=== PATIENT | female | born 1950 | race Caucasian/White ===

== ENCOUNTER 2024-01-20 02:07 | Inpatient (IN) | payer MEDICARE, SELFPAY ==
[2024-01-19] VITALS (7 sets, daily range): BP systolic 146–184; BP diastolic 67–93; PULSE 66–75; BMI 43.1
[2024-01-19 22:09] LABS: % Basophils 0.7 % (0-2); % Immature Granulocytes 0.2 % (0-0.5); % Lymphocytes 19.2 % (20.5-51.1); % Monocytes 6.4 % (1.7-9.3); % Neutrophils 70.5 % (42.2-75.2); Absolute Basophils 0.1 10^3/uL (0-0.2); Absolute Eosinophils 0.3 10^3/uL (0-0.7); Absolute Lymphocytes 2.1 10^3/uL (1.2-3.4); Absolute Monocytes 0.7 10^3/uL (0.1-0.6); Absolute Neutrophils 7.6 10^3/uL (1.4-6.5); Hematocrit 37.2 % (37.0-47.0); Hemoglobin 12.6 g/dL (12.0-16.0); Mean Corp Hgb Conc. 33.9 g/dL (33.0-37.0); Mean Corpuscular Hgb 27.9 pg (27.0-31.0); Mean Corpuscular Volume 82.5 fL (81.0-99.0); Mean Platelet Volume 9.3 fL (7.4-10.4); Nucleated Red Blood Cells % 0 %; Platelet Count 296 10^3/uL (130-400); Red Blood Cell Count 4.51 10^6/uL (4.20-5.40); Red Cell Dist. Width 13.6 % (11.5-14.5); White Blood Cell Count 10.7 10^3/uL (4.8-10.8)
[2024-01-19 22:27] LABS: ALT (SGPT) 17 U/L (0-35); AST (SGOT) 29 U/L (14-36); Albumin 4.5 g/dl (3.5-5.0); Alkaline Phosphatase 80 U/L (38-126); Blood Urea Nitrogen 18 mg/dl (7-17); Calcium 9.9 mg/dl (8.4-10.2); Carbon Dioxide 28 mmol/L (22-30); Chloride 104 mmol/L (98-107); Estimated Creatinine Clearance 84 ml/min; Glucose 126 mg/dl (70-99); Potassium 4.4 mmol/L (3.5-5.1); Sodium 139 mmol/L (135-145); Total Bilirubin 0.6 mg/dl (0.2-1.3); Total Protein 6.9 g/dl (6.3-8.2); eGFR > 60.00
--- NOTE | 2024-01-19 23:09 | ED.GENMED ---
History of Present Illness
<Elza Floyd MD, Resident - Last Filed: 01/19/24 23:42>
General
Chief Complaint: Dizziness
Time Seen by Provider: 01/19/24 22:52
History of Present Illness
History of Present Illness:
73 year old female with PMH HTN, HLD, CABG, PE, thyroid nodules, hypothyroidism, presented to the ED with dizziness which started this afternoon at 2 pm. Patient c/o of feeling lightheaded while getting up from chair. She had a hard time putting in
her slippers today. She denies room spinning. She reports of blurred vision due to history of cataract. Patient sees Dr Castro for history of heart disease. She is on Eliquis twice a day for PE. Patient c/o left anterior neck pain which
radiates up left jaw intermittently. She also reports of left ear fullness. She has history of vertigo for which she had taken meclizine in the past. Denies N, V. She reports of mild headache.
Past History
<Elza Floyd MD, Resident - Last Filed: 01/19/24 23:42>
Past History
ED Past Medical History: CAD, GERD, HTN, Hypercholesterolemia, Hypothyroidism and Other (DVT on Eliquis)
ED Past Surgical History: Cardiac and Orthopedic
Social History
Tobacco: Non-smoker
Alcohol: None
Personal:
Living: with family
Employment: Retired
Family History
Family History: Other
Phy Exam
<Elza Floyd MD, Resident - Last Filed: 01/19/24 23:42>
General Physical Exam
General Presentation: well appearing and no apparent distress
ENT Exam
ENT Exam: TM's normal, neck supple and other (tenderness around left sternocleidomastoid muscle )
Additional ENT: mallampati score 3
Cardiovascular Exam
Cardiovascular Exam: regular rate/rhythm
Pulmonary Exam
Pulmonary Exam: lungs clear
Course
<Elza Floyd MD, Resident - Last Filed: 01/19/24 23:42>
Orders/Labs/Results
Orders:
Orders
01/19/24 21:49
Complete Blood Count/With Diff Urgent
Comprehensive Metabolic Panel Urgent
01/19/24 23:19
Electrocardiogram (*1) Urgent
Reason for Study: CAD
Other Reason for Exam: neck pain
EKG- Treatment ONCE
Orthostatic VS- Treatment ONCE
01/19/24 23:34
Troponin I Urgent
Acetaminophen 1000MG/100Ml [Ofirmev] 1,000 mg in 100 ml IV ONCE
Acetaminophen IV Indication:: ED Narcotic Naive Pt-ONCE
Meclizine [Antivert] 25 mg PO NOW STA
01/20/24 00:00
CT Head W/o Iv Contrast Urgent
Reason For Exam: acute dizziness w N/V
Abnormal Lab Results
01/19/24 01/20/24
21:49 00:25
Absolute Neuts (auto) 7.6 H 10^3/uL
(1.4-6.5)
Absolute Monos (auto) 0.7 H 10^3/uL
(0.1-0.6)
Lymphocytes % 19.2 L %
(20.5-51.1)
BUN 18 H mg/dl
(7-17)
Glucose 126 H mg/dl
(70-99)
Troponin I 0.036 H* ng/ml
01/19/24 21:49
01/19/24 21:49
Vital Signs
Initial and Last Documented VS:
Initial Vital Signs
Temp Pulse Resp BP Pulse Ox
98.1 F 86 18 184/93 98
01/19/24 20:33 01/19/24 20:33 01/19/24 20:33 01/19/24 20:33 01/19/24 20:33
Last Documented Vital Signs
Temp Pulse Resp BP Pulse Ox
98.1 F 86 18 177/85 97
01/19/24 20:33 01/19/24 20:33 01/19/24 20:33 01/19/24 21:50 01/19/24 22:15
<Daksha Juarez, DO - Last Filed: 01/20/24 01:30>
Orders/Labs/Results
Orders:
Orders
01/19/24 21:49
Complete Blood Count/With Diff Urgent
Comprehensive Metabolic Panel Urgent
01/19/24 23:19
Electrocardiogram (*1) Urgent
Reason for Study: CAD
Other Reason for Exam: neck pain
EKG- Treatment ONCE
Orthostatic VS- Treatment ONCE
01/19/24 23:34
Troponin I Urgent
Acetaminophen 1000MG/100Ml [Ofirmev] 1,000 mg in 100 ml IV ONCE
Acetaminophen IV Indication:: ED Narcotic Naive Pt-ONCE
Meclizine [Antivert] 25 mg PO NOW STA
01/20/24 00:00
CT Head W/o Iv Contrast Urgent
Reason For Exam: acute dizziness w N/V
Abnormal Lab Results
01/19/24 01/20/24
21:49 00:25
Absolute Neuts (auto) 7.6 H 10^3/uL
(1.4-6.5)
Absolute Monos (auto) 0.7 H 10^3/uL
(0.1-0.6)
Lymphocytes % 19.2 L %
(20.5-51.1)
BUN 18 H mg/dl
(7-17)
Glucose 126 H mg/dl
(70-99)
Troponin I 0.036 H* ng/ml
01/19/24 21:49
01/19/24 21:49
Vital Signs
Initial and Last Documented VS:
Initial Vital Signs
Temp Pulse Resp BP Pulse Ox
98.1 F 86 18 184/93 98
01/19/24 20:33 01/19/24 20:33 01/19/24 20:33 01/19/24 20:33 01/19/24 20:33
Last Documented Vital Signs
Temp Pulse Resp BP Pulse Ox
98.1 F 86 18 177/85 97
01/19/24 20:33 01/19/24 20:33 01/19/24 20:33 01/19/24 21:50 01/19/24 22:15
<Daksha Juarez DO - Last Filed: 01/20/24 01:30>
*Radiology
Radiology exam reviewed: radiology read reviewed (CT of the head is unremarkable.)
*Pulse Oximetry
Patient hypoxic: no
*EKG
Interpreted by ED Provider?: Yes
Interpretation: abnormal
Comparison EKG: no changes (Unchanged from previous 2019 as well as 2021)
Rate: normal
Rhythm: sinus
[place]: normal axis
Interval: long QT
QRS Pattern: normal QRS
Ischemia: T-wave inversion (Flipped T waves anteriorly, similar and unchanged from previous EKGs.)
*Lift Operator Interpretation
Rate: normal
Interpretation: normal
Rhythm: sinus
*Critical Care Note
Total Time (30-74mins, 75-104mins- exclusive of procedures): Not Applicable
<Elza Floyd MD, Resident - Last Filed: 01/19/24 23:42>
Update Note
Update Note:
D/D- peripheral vertigo vs central vertigo, Angina (due to jaw pain )
Ordered CT scan of head to r/o hemorrhage. Dizziness can be caused by TIA.
Ordered EKG, troponin I to r/o NH.
IV tylenol and meclizine
ED Attending Note
<Elza Floyd MD, Resident - Last Filed: 01/19/24 23:42>
-
Portions of this chart may have been created with voice recognition software.� Occasional wrong word or��sound alike� substitutions may have occurred due to the inherent limitations of voice recognition software.
<Daksha Juarez DO - Last Filed: 01/20/24 01:30>
ED Attending Note
Patient seen and examined by attending physician: Yes
I performed a history and physical exam of patient and discussed management with resident, I reviewed resident's note and agree with documented findings and plan of care.: Yes
ED Attending Note:
73-year-old woman with history of hypertension, hyperlipidemia, CAD/CABG, hypothyroidism, remote history of PE, chronically maintained on twice daily Eliquis presents with several day history of mild bilateral ear fullness, intermittent
popping/crackling sensation in her ears more so when she attempts to equalize the pressure in her ears. She has also had some left lateral neck discomfort that radiates to the left side of her head over the past several days.
Today however since 2 PM she complains of intermittent dizziness that is worse with change in position, worse with flexing her head forward, worse with rotation of her head and worse with moving about. Dizziness is described as a sense of
lightheadedness, feeling off balance. Although left lateral neck pain, left lateral jaw pain radiating to her left ear has been persistent for the past several days it seems worse today with onset of dizziness/lightheadedness.
She denies sore throat, no cough, no chest pain or palpitations. Dizziness has been accompanied with nausea, dry heaves.
73-year-old woman appears her stated age, awake and alert, pleasant, appears in no acute distress. Easily communicative.
HEENT: Extraocular muscles intact, no nystagmus, negative test of skew but vertiginous symptoms are promptly worsened with eye movement. Mild cerumen debris bilateral ears with scant clear effusion bilateral middle ears but TMs are otherwise
without injection. Nares have mildly boggy pale blue turbinates without rhinorrhea. Posterior pharynx is clear.
Neck is supple with mild to moderate tenderness along the left sternocleidomastoid muscle. There is no adenopathy, no thyroidomegaly, no soft tissue swelling.
Heart is regular rate and rhythm.
Lungs are clear to auscultation.
Neuro: Awake alert and oriented x 3. No focal neuro deficits. Motor strength is 5/5 bilaterally. Gross sensation is intact. Negative nystagmus. Negative test of skew but somewhat unsteady with standing.
Concern for peripheral versus central vertigo. Other consideration is orthostasis.
With left lateral neck pain/jaw pain must also consider angina.
Will check EKG, CT of the head, troponin.
Noted to have moderate systolic hypertension in the 170s.
Will check orthostatic vital signs.
Will trial a dose of meclizine.
01/20/[address] of the head is unremarkable.
Orthostatic vital signs are negative.
Blood pressure is improved to 140s systolic.
Patient continues with intermittent vertiginous symptoms, unsteadiness with standing accompanied with nausea.
Labs are remarkable for borderline elevated troponin 0.036.
EKG shows flipped T waves anteriorly but similar and unchanged from previous EKG 2019.
Due to elevated troponin, intermittent jaw pain, this is certainly worrisome for angina and vertiginous symptoms, unsteady gait could certainly be peripheral vertigo in nature but concerning for central vertigo.
Will admit to hospitalist service. Continue to trend troponin.
Consider cardiology/neurology input. Patient follows with Dr. Clara Campoverde.
Discharge Plan
Departure
Patient Disposition: Admit
Date of Disposition: 01/20/24
Time of Disposition: 01:26
Admit to: Telemetry
Admit to doctor: Kevin
Presentation/result/management discussed w/ accepting MD/DO: Hospitalist
Condition: Fair
Discharge Problem:
Acute onset of severe vertigo, Elevated troponin
Prescriptions:
No Action
multivitamin 1 EACH tablet
1 ea PO DAILY
metoprolol succinate 50 MG tablet extended release 24 hr
50 mg PO HS
omeprazole 40 MG capsule,delayed release(DR/EC)
40 mg PO NOON
magnesium 250 MG tablet
400 mg PO DAILY
rosuvastatin 20 MG tablet
20 mg PO HS
cholecalciferol (vitamin D3) [Vitamin D3] 2,000 UNIT capsule
2,000 unit PO BID
Eliquis 5 MG tablet
5 mg PO BID
Hold Instructions: Resume on 03/26/22. DO NOT RESUME UNTIL POST-OPERATIVE DAY 3.
Folbee 2.5-25-1 mg Tablet
1 tab PO DAILY
montelukast 10 mg Tablet
10 mg PO HS
aspirin 81 mg Tablet,Delayed Release (Dr/Ec)
81 mg PO DAILY
mupirocin 2 % ointment
1 applic intranasal BID Qty: 1 0RF
Patient Comments:
Mupirocin applied this am 03/23/22
levothyroxine 50 mcg Tablet
50 mcg PO DAILY
docusate sodium 100 mg Capsule
100 mg PO BID Qty: 30 0RF
Eliquis 2.5 mg Tablet
2.5 mg PO BID Qty: 3 0RF
Rx Instructions:
Start night of discharge and take twice a day; then resume Eliquis 5 mg twice a day on 03/26/22.
lidocaine [Aspercreme (lidocaine)] 4 % Adhesive Patch,Medicated
2 patch topical DAILY PRN (Reason: Knee pain) Qty: 10 0RF
Rx Instructions:
Over the counter. Remove nightly.
Apply to sides of left knee. Do not place over incision
sennosides [senna] 8.6 mg Tablet
17.2 mg PO BID Qty: 30 0RF
gabapentin 100 mg Capsule
200 mg PO TID Qty: 30 0RF
acetaminophen [Acetaminophen Extra Strength] 500 mg tablet
1,000 mg PO Q6H Qty: 30 0RF
Rx Instructions:
DO NOT exceed >4000 mg daily.
cefadroxil 500 mg capsule
500 mg PO BID Qty: 14 0RF
Rx Instructions:
Start night of discharge and continue 2x daily until finished.
Take with probiotic.
Saccharomyces boulardii [Florastor] 250 mg capsule
250 mg PO BID Qty: 14 0RF
Rx Instructions:
Over the counter. Take while on antibiotic.
If unavailable, choose another probiotic.
losartan 50 MG tablet
100 mg PO DAILY Qty: 1 0RF
Rx Instructions:
Hold if systolic blood pressure <130 while on Oxycodone.
hydralazine 25 mg Tablet
25 mg PO BID Qty: 1 0RF
Rx Instructions:
Hold if systolic blood pressure <130 while on Oxycodone.
spironolactone 25 mg Tablet
12.5 mg PO DAILY Qty: 1 0RF
Rx Instructions:
Hold if systolic blood pressure <130 while on Oxycodone.
oxycodone 5 mg capsule
5 mg PO Q4H PRN (Reason: moderate-severe pain) Qty: 30 0RF
Rx Instructions:
1 tab for moderate pain, 2 if severe
Dx total joint; ongoing therapy.
Referrals:
Pierre Deustch MD [Family Provider] -
Interventions
Interventions:
*Risk Screen - Suicide Last Done: 01/19/24 20:33
*General Assessment Last Done: 01/19/24 20:33
*Neglect/Abuse Screening Last Done: 01/19/24 20:33
ED- Fall Risk Assessment Last Done: 01/19/24 21:47
ED- Neurological Assessment Last Done: 01/19/24 21:47
ED- Cardiac Assessment Last Done: 01/19/24 21:47
Discharge Date and Time
Print Language: CHINESE
[2024-01-20] VITALS (10 sets, daily range): BP systolic 114–179; BP diastolic 57–92; PULSE 71–79; O2SAT 98; BMI 42.1
[2024-01-20] MEDS: OFIRMEV 100 IV (00:21)
[2024-01-20] MEDS: ANTIVERT 25 MG PO (00:21)
[2024-01-20 01:07] LABS: Troponin I 0.036 ng/ml
--- NOTE | 2024-01-20 01:45 | EDRN ---
Dr. Juarez in to bedside going over results and plan to stay, patient up to use restroom, patient reports when standing felt slightly dizzy and lightheaded, patient was able to ambulate into restroom with assistance to urinate and back in bed resting.
--- NOTE | 2024-01-20 01:48 | HPS.HSE ---
Addendum entered and electronically signed by Henrry Brown MD 01/20/24 04:33:
Prelim�CTA chest/abdomen and pelvis NEG for��for acute dissection.
- F/U final CTA H & N in AM
Original Note:
Family Physician
-
Family Physician: Pierre Deutsch
Chief Complaint
-
lightheadedness and off balance
History of Present Illness
73 year old female with PMH HTN, HLD, CABG, PE, thyroid nodules, hypothyroidism, remote HX PE , chr eliquis seen at ER for evalaution of intermittent dizziness:
- described as lightheadedness and off balance
- acute onset begins around 2 pm yesterday
- Worse with change of head position
Other symptom: Lt left lateral neck discomfort that radiates to the left side of her head over the past several days.
- radiating to her left ea for the past several days
- it seems worse today with onset of dizziness/lightheadedness.
Medical History
Past Medical History
Past Medical History: Reports Other
Additional Past Medical History:
CAD, GERD, HTN, Hypercholesterolemia, Hypothyroidism and Other (DVT on Eliquis)
Past Surgical History: Reports Cardiac and Orthopedic
Social History
Tobacco: Non-smoker
Alcohol: None
Personal:
Employment: Retired
Family History
Family History: Not pertinent
Allergies / Home Medications
Allergies reflects when Allergies were last updated in [facility].
Home Medications with original date entered in [facility]
Allergy/Medication List:
Allergies
Allergy/AdvReac Type Severity Reaction Status Date / Time
No Known Allergies Allergy Verified 01/19/24 20:33
Home Medications
apixaban 5 mg tablet (Eliquis) 5 mg PO BID Blood clot prevention/tx 12/06/17
cholecalciferol (vitamin D3) 50 mcg (2,000 unit) capsule (Vitamin D3) 2,000 unit PO BID Supplement 12/06/17
magnesium 250 mg tablet 400 mg PO DAILY Electrolyte Repletion 12/06/17
metoprolol succinate 50 mg tablet,extended release 24 hr 50 mg PO HS Blood pressure 12/06/17
multivitamin 1 ea PO DAILY Supplement 12/06/17
omeprazole 40 mg capsule,delayed release 40 mg PO NOON Gastrointestinal issue 12/06/17
rosuvastatin 20 mg tablet 20 mg PO HS High cholesterol 12/06/17
aspirin 81 mg tablet,delayed release 81 mg PO DAILY Blood clot prevention/tx 03/04/22
folic acid-vit B6-vit B12 2.5 mg-25 mg-1 mg tablet (Folbee) 1 tab PO DAILY Supplement 03/04/22
montelukast 10 mg tablet 10 mg PO HS ASTHMA 03/04/22
levothyroxine 50 mcg tablet 50 mcg PO DAILY Thyroid 03/09/22
acetaminophen 500 mg tablet (Acetaminophen Extra Strength) 1,000 mg (2 x 500 mg) PO Q6H #30 tabs 03/24/22
hydralazine 25 mg tablet 25 mg PO BID #1 tab 03/24/22
losartan 50 mg tablet 100 mg (2 x 50 mg) PO DAILY #1 tab 03/24/22
diphenhydramine 25 mg-acetaminophen 500 mg tablet (Tylenol PM Extra Strength) 2 tab PO HS PRN sleeping 01/20/24
Review of Systems
-
Constitutional: Reports No Symptoms
EENT: Reports See HPI
Respiratory: Reports No Symptoms
Cardiac: Reports No Symptoms
Abdomen/GI: Reports No Symptoms
: Reports No Symptoms
Musculoskeletal: Reports No Symptoms
Skin: Reports No Symptoms
Neurological: Reports See HPI and Dizzy
Endocrine: Reports No Symptoms
Hematologic/Lymphatic: Reports No Symptoms
Psych: Reports No Symptoms
Physical Exam
Vital Signs
Vital Signs
Temp Pulse Resp BP Pulse Ox
98.1 F 86 18 177/85 97
01/19/24 20:33 01/19/24 20:33 01/19/24 20:33 01/19/24 21:50 01/19/24 22:15
Physical Exam
General: Conversant and Other (Morbid obesity )
HEENT: NormoCephalic, Anicteric, Moist mucous membranes, Atraumatic, No Ptosis and Other (supple, mild to moderate tenderness along the left sternocleidomastoid muscle. No adenopathy)
Respiratory: Clear; No Wheezes, Rales or Rhonchi
Cardiac: S1/S2, Regular Rhythm and Tachycardia
Breast: Deferred by me
GI: Soft, Non Tender, Non Distended and Normal Bowel Sounds
Rectal: Deferred by Provider
Genito-urinary: Deferred by me
Musculoskeletal: No Edema
Skin: Warm and Dry
Neuro: AO x 3, No Motor Deficits and Nonfocal/grossly intact
Psych: Calm
Laboratory Results
-
01/19/24 21:49
01/19/24 21:49
Laboratory Results
Total Bilirubin 0.6 mg/dl (0.2-1.3) 01/19/24 21:49
AST 29 U/L (14-36) 01/19/24 21:49
ALT 17 U/L (0-35) 01/19/24 21:49
Alkaline Phosphatase 80 U/L (38-126) 01/19/24 21:49
Troponin I 0.036 ng/ml H* 01/20/24 00:25
Data Reviewed
-
CT Scan: Report Reviewed by me
Lab Data: Labs Reviewed by me
Impression/Plan
-
Reviewed VS: Afebrile HR 86 RR18 BP 175/85 - 185/93 POx 97 on RA
BMI 43
Data
Unremarkable CBC
BUN 18
eGFR > 60
TPNI 0.036
HCT:
no acute pathology
NO PRIOR hospitalist admission:
ASSESSMENT & PLAN
Pending Rx reconciliation
Acute onset of severe vertigo worse with head position DDX: Peripheral vs Central
- Unremarkable HCT
- NEG Orthostatic vital signs
- intermittent vertiginous symptoms, unsteadiness with standing
- POS nausea
- Brain MRI in AM
- anti emetics
- fall precaution
- PT/OT
- Neuro consult
Intermittent Jaw pain with radiation
Elevated troponin 0.036.
EKG: Abn T wave anteriorly but similar and unchanged from previous EKG 2019.
- Patient follows with Dr. Clara Campoverde.
- CTA of H & N to eval for carotid dissection ( case dw ER attd)
- cont. ASA 81 mg daily
- Trend TPNI and serial EKG
- DCA card consult
HX CAD/ CABG
- on baby ASA and Statin
Essentio HTN
- Losartan, Hydralazine on the list - Pending Rx reconciliation
HX PE
- chronically on Eliquis
Hypothyroid
- cot LT4 - Pending Rx reconciliation
Morbid obesity BMI 43
DVT Px: on chr Eliquis
Code: Full
IP - TLM
--- NOTE | 2024-01-20 02:14 | EDRN ---
Dr. Brown at bedside going over admission, patient also reports nausea, Dr. Brown aware, report also given to LaloRN
[2024-01-20 03:16] LABS: Troponin I 0.038 ng/ml
--- NOTE | 2024-01-20 06:06 | PTCARENOTE ---
Pt admitted from ED. AAOx3. + headache, intermittent L side neck pain, dizziness and nausea. NIH = 0, ordered for q4 neuro checks. VSS, lungs clear. Call villalta within reach.
--- NOTE | 2024-01-20 07:20 | W.PN.HOSP.TC ---
Today's Communication/Plan
-
Left Internal Carotid Stenosis -- vascular surgery consulted and carotid U/S pending
Appreciate neurology, cardiology, ENT and vascular surgery
Assessment / Plan
Assessment / Plan
Physical Exam
General: Not in acute distress
HEENT: Normocephalic. Neck supple, mild to moderate tenderness along the left sternocleidomastoid muscle and the left submandibular area.
Respiratory: Clear to Auscultation Bilaterally
Cardiac: S1/S2, Regular Rhythm
GI: Soft, Non Tender, Non Distended and Normal Bowel Sounds
Musculoskeletal: No Edema
Skin: Warm and Dry
Neuro: AAO x 3, Cranial Nerves 2 through 12 grossly intact. Strength and sensation grossly intact bilaterally.
Psych: Calm

CT Head (as per radiologist's report)
IMPRESSION:
No acute intracranial abnormality noted.
CTA Head and Neck (as per radiologist's report)
IMPRESSION:
The cervical carotid and vertebral arteries are patent. Noncalcified plaque at the origin of the left cervical ICA with 65-70% estimated luminal diameter reduction.
No [place] of [place] region aneurysm, stenosis, or occlusion.
No cerebral artery significant plaque, stenosis, thrombus, or occlusion.
The right intradural vertebral artery is dominant, with diffuse decreased caliber of the distal left intradural vertebral artery.
Incidental asymmetric left thyroid lobe enlargement with heterogeneous nodularity, for which further evaluation with follow-up nonemergent ultrasound is recommended.
Moderate to advanced bilateral cervical facet arthrosis, left greater than right.
Degree of stenosis based on NASCET criteria.

Assessment/Plan
Acute Vertigo
Left internal carotid artery stenosis between 65 and 70%
History of Vertigo on Meclizine
Left Jaw/Left Neck Pain/Left Submandibular Pain with Left Ear Fullness
- CT imaging findings as above
- Check carotid ultrasound to determine if there is a stenosis of 70% or greater
- Vascular Surgery consulted, recommendations appreciated
- PT/OT
- Neuro consult
- Cardiology consulted, given patient's CABG history and left jaw pain
- ENT also consulted given left ear fullness
History CAD/ CABG
- on baby ASA and Statin - continue
[place] HTN
- Losartan, Hydralazine on the list - Pending Rx reconciliation
History of PE
- chronically on Eliquis
Hypothyroid
- cot LT4 - Pending Rx reconciliation
CAD with history of CABG in 2017
GERD
Hypercholesterolemia
Pulmonary embolism on DOAC
Episode of hyponatremia
Left ventricular hypertrophy
History of Left knee arthroscopy
Osteoarthritis
Morbid obesity BMI 43
DVT Prophylaxis: Eliquis
Code: Full
Anticipated Discharge: > 48 hours
Subjective/Interval History
-
Date of Service: January 20, 2024
Patient was seen and examined. She reported discomfort in her left submandibular area. She denied any chest pain or shortness of breath.
Objective Data
-
Labs:
Laboratory Results
01/19/24 01/20/24 01/20/24
21:49 05:11 06:00
WBC 10.7 Pending
Hgb 12.6 Pending
Hct 37.2 Pending
Plt Count 296 Pending
Sodium 139 Pending
Potassium 4.4 Pending
Chloride 104 Pending
Carbon Dioxide 28 Pending
BUN 18 H Pending
Creatinine 0.8 Pending
Glucose 126 H Pending
Calcium 9.9 Pending
Total Bilirubin 0.6 Pending
AST 29 Pending
ALT 17 Pending
Alkaline Phosphatase 80 Pending
Vital Signs:
Vital Signs
Temp Pulse Resp BP Pulse Ox
98.1 F 72 18 166/67 96
01/20/24 05:29 01/20/24 05:29 01/20/24 05:29 01/20/24 05:29 01/20/24 05:29
--- NOTE | 2024-01-20 07:26 | PTCARENOTE ---
Pt admitted from ED. Trop/ekg orders due 510 prior to arrival to unit. No response from corner trimmer operator when attempted to message for lab draw. EKG done. Report given to delvin BERGER regarding miss lab draw. No corner trimmer operator on unit as of 727. Pt
asymptomatic, no c/o chest pain. Pt remains on marketing data specialist.
--- NOTE | 2024-01-20 08:26 | CON.NEURO ---
Neuro Assessment/Plan
Assessment
Abrupt onset of vertigo which is most likely secondary to orthostasis with the patient reporting worsening of sensation with both laying flat as well as sitting up. Differential diagnosis includes vestibular migraine.
CTA head and neck suggested a left internal carotid artery stenosis between 65 and 70%
Plan
Follow orthostatic blood pressures
Physical therapy evaluations
Check carotid ultrasound to determine if there is a stenosis of 70% or greater which would necessitate either inpatient or outpatient vascular surgery consultation
Check blood work for potential metabolic causes although less likely
No clear indication patient would benefit from meclizine at this time
Will follow
Consultation
Order
Date of Consultation: 01/20/24
Requesting Provider: Hospitalist
Reason for Consult: Vertigo
Subjective/Objective
Subjective Data
Date of Service: January 20, 2024
Right-Handed
By medical records, the patient was in this hospital's emergency department in 2019 at which time the patient was describing approximately 4 days of dizziness typically after taking medication in the morning.
The patient returned to this hospital's emergency department with sense of dizziness beginning at 1400 hrs. yesterday. The patient had difficulty getting up from a chair and putting on slippers. Patient also reported left anterior neck pain which
was radiating up to the left jaw intermittently. There is a sense of left ear fullness.
10 years ago (2013) patient had an episode of nausea and room-spinning. No recurrence.
The patient has a history of vertigo for which she is using meclizine starting 6 months ago (07/2023) with lying down and lying on left-side then resolves, 3x/week, lasting few minutes, room-spinning.
Worsening factors: standing, moving head side-side
No falling.
Associated symptoms: no hearing changes, no ringing, headache did take place yesterday bifrontal and bitemporal into the neck. Headache resolved with medication use.
Began having headaches in the past week. Having sleep onset difficulties since 2016, without prior testing.
Objective Data
Vital Signs
Temp Pulse Resp BP Pulse Ox
36.6 C 64 16 147/74 98
01/20/24 07:35 01/20/24 07:35 01/20/24 07:35 01/20/24 07:35 01/20/24 07:35
Sodium 139 mmol/L (135-145) 01/19/24 21:49
Potassium 4.4 mmol/L (3.5-5.1) 01/19/24 21:49
BUN 18 mg/dl (7-17) H 01/19/24 21:49
Glucose 126 mg/dl (70-99) H 01/19/24 21:49
Calcium 9.9 mg/dl (8.4-10.2) 01/19/24 21:49
Patient Allergies
No Known Allergies Allergy (Verified 01/19/24 20:33)
Physical Exam
-
General: No Apparent Distress and Appears Stated Age
Eyes: OU Absent Papilledema, Round OU, Scio Conjunctivae and No Ptosis
HEENT: Anicteric and Moist Mucous Membranes
Neck: Full Range of Motion
Respiratory: No Dyspnea
Cardiac: No JVD
GI: Non-distended
Skin: Unremarkable
Extremities: No Clubbing, No Cyanosis and No Edema
Psych: Intact Judgement/Insight
Extended Neurological Exam
Mood & Affect: Mood Unremarkable and Affect Unremarkable
Attention Span & Concentration: Awake, Alert, Interactive and No Difficulty with 2 Step Request
Memory: Unremarkable
Tremor: Hand Tremor Absent and Head Tremor Absent
Speech: Quality Unremarkable and Quantity Unremarkable
Cranial Nerve II: Left Eye: Pupillary Reactivity Unremarkable, Pupillary Size Unremarkable and Visual Ortiz Intact
Cranial Nerve II: Right Eye: Pupillary Reactivity Unremarkable, Pupillary Size Unremarkable and Visual Ortiz Intact
Cranial Nerves III, IV, : Extraocular Movement: Extraocular Movement Full in all Directions
Cranial Nerve VII: Facial Symmetry: Normal Facial Symmetry
Cranial Nerve VIII: Hearing: Unremarkable Hearing to Normal Conversational Volume
Cranial Nerves IX, X: Palate Movement: Palate Elevation Symmetric
Cranial Nerve XI: Shoulder Shrug: Unremarkable
Cranial Nerve XII: Tongue Protusion: Midline
Muscle Strength, Overall: Full Throughout
Muscle Bulk & Tone: Bulk Unremarkable and Tone Unremarkable
Pronator Drift: No Drift in Upper Extremities
Deep Tendon Reflexes: Trace Throughout
Touch Sensation: Unremarkable
Coordination: Hbujli-[id number]-[id number] Testing Unremarkable
Babinski Sign: Absent Bilaterally
Data Reviewed
-
CT Head: Report Reviewed
Labs: Ordered and Report Reviewed
Reviewed with: Physician and Patient
Old Records: Summarized
Medications
-
Active Medications
Generic Name Dose Route Start Last Admin
Trade Name Freq PRN Reason Stop Dose Admin
Acetaminophen 650 mg 01/20/24 05:11
Acetaminophen 650 Mg Rectal Suppository RECTAL 02/17/24 05:10
Q4HPRN PRN
MCCABE, mild pain, or temp >100.4F
Acetaminophen 650 mg 01/20/24 05:11
Acetaminophen 325 Mg Tablet PO 02/17/24 05:10
Q4HPRN PRN
MCCABE, mild pain, or temp >100.4F
Apixaban 5 mg 01/20/24 08:00
Apixaban (Eliquis) 5 Mg Tablet PO 02/17/24 07:59
BID RAVI
Aspirin 81 mg 01/20/24 08:00
Aspirin 81 Mg (Enteric Coated) Tablet PO 02/17/24 07:59
DAILY RAVI
Cholecalciferol 50 mcg 01/20/24 08:00
Cholecalciferol (Vitamin D3) 50 Mcg Tablet (2,000 Units) PO 02/17/24 07:59
BID RAVI
Levothyroxine Sodium 50 mcg 01/21/24 06:00
Levothyroxine 50 Mcg Tablet PO 02/18/24 05:59
DAILY@0600 RAVI
Losartan Potassium 100 mg 01/20/24 08:00
Losartan 100 Mg Tablet PO 02/17/24 07:59
DAILY RAVI
Magnesium Oxide 500 mg 01/20/24 08:00
Magnesium Oxide 500 Mg Tablet PO 02/17/24 07:59
DAILY RAVI
Metoprolol Succinate 50 mg 01/20/24 22:00
Metoprolol 50 Mg Extended Release Tablet PO 02/17/24 21:59
HS RAVI
Montelukast Sodium 10 mg 01/20/24 22:00
Montelukast Sodium 10 Mg Tablet PO 02/17/24 21:59
HS RAVI
Multivitamins Therapeutic 1 tablet 01/20/24 08:00
Multivitamin Tablet PO 02/17/24 07:59
DAILY RAVI
Pantoprazole Sodium 40 mg 01/20/24 12:00
Pantoprazole 40 Mg Delayed Release Tablet PO 02/17/24 11:59
NOON RAVI
Rosuvastatin Calcium 20 mg 01/20/24 22:00
Rosuvastatin (Crestor) 20 Mg Tablet PO 02/17/24 21:59
HS RAVI
Sodium Chloride 0 flush 01/20/24 05:00
Sodium Chloride 0.9% (Flush) Syringe IV 02/17/24 04:59
PER PROTOCOL RAVI
Home Medications
�Medication �Instructions �Recorded
apixaban 5 mg tablet (Eliquis) 5 mg PO BID Blood clot 12/06/17
prevention/tx
cholecalciferol (vitamin D3) 50 2,000 unit PO BID Supplement 12/06/17
mcg (2,000 unit) capsule (Vitamin
D3)
magnesium 250 mg tablet 400 mg PO DAILY Electrolyte 12/06/17
Repletion
metoprolol succinate 50 mg 50 mg PO HS Blood pressure 12/06/17
tablet,extended release 24 hr
multivitamin 1 ea PO DAILY Supplement 12/06/17
omeprazole 40 mg capsule,delayed 40 mg PO NOON Gastrointestinal 12/06/17
release issue
rosuvastatin 20 mg tablet 20 mg PO HS High cholesterol 12/06/17
aspirin 81 mg tablet,delayed 81 mg PO DAILY Blood clot 03/04/22
release prevention/tx
folic acid-vit B6-vit B12 2.5 1 tab PO DAILY Supplement 03/04/22
mg-25 mg-1 mg tablet (Folbee)
montelukast 10 mg tablet 10 mg PO HS ASTHMA 03/04/22
levothyroxine 50 mcg tablet 50 mcg PO DAILY Thyroid 03/09/22
losartan 50 mg tablet 100 mg (2 x 50 mg) PO DAILY #1 tab 03/24/22
acetaminophen 500 mg tablet 1,000 mg PO Q6H Pain 01/20/24
(Acetaminophen Extra Strength)
diphenhydramine 25 2 tab PO HS PRN sleeping 01/20/24
mg-acetaminophen 500 mg tablet
(Tylenol PM Extra Strength)
hydralazine 25 mg tablet 25 mg PO BID Blood Pressure 01/20/24
Past History
Past History
ED Past Medical History: CAD, GERD, HTN, Hypercholesterolemia, Hypothyroidism and Other (Pulmonary embolism on DOAC, episode of hyponatremia, left ventricular hypertrophy, obesity)
ED Past Surgical History: Cardiac (CABG 2017), and Orthopedic (Left knee arthroscopy)
Social History
Tobacco: Non-smoker
Alcohol: None
Personal:
Living: with family
Employment: Retired
Family History
Family History: Other (Reviewed and noncontributory)
[2024-01-20 09:21] LABS: Hematocrit 36.9 % (37.0-47.0); Hemoglobin 12.3 g/dL (12.0-16.0); Mean Corp Hgb Conc. 33.3 g/dL (33.0-37.0); Mean Corpuscular Volume 83.9 fL (81.0-99.0); Mean Platelet Volume 9.8 fL (7.4-10.4); Platelet Count 283 10^3/uL (130-400); Red Cell Dist. Width 13.9 % (11.5-14.5); White Blood Cell Count 8.7 10^3/uL (4.8-10.8)
--- NOTE | 2024-01-20 09:37 | CON.CAR ---
Addendum entered and electronically signed by Noel Sosa MD 01/20/24 14:21:
73-year-old woman admitted with dizziness, vague headache and nausea, we are asked to comment regarding a detectable troponin of 0.038
PMH: CAD, hypertension, unprovoked pulmonary embolus on lifelong anticoagulation, obesity, hyperlipidemia
PSH: CABG 2017, , orthopedic procedures
SH: Former smoker, no alcohol,
Family history: Noncontributory
Allergies: None
Outpatient cardiac meds: Aspirin 81 mg a day, Eliquis 5 mg twice daily, hydralazine 25 twice daily, levothyroxine, losartan 100 mg a day, magnesium, metoprolol ER 50 mg a day, 20 mg a day
Review of systems: Negative except as above
172/89, pulse 79, respirate 16, afebrile, not orthostatic when measured this morning obese, pleasant, not, in acute distress, head neck exam with nystagmus per ENT, lungs are clear, soft systolic murmur left sternal border JVD carotids okay, abdomen
obese, extremities without much edema
Head neck CTA: Left cervical internal carotid stenosis approximating 65-70%
ECG: Sinus rhythm, diffuse ST segment depression anteriorly, similar to 2020, in fact less apparent
Sestamibi study June 2019: Small fixed apical defects, EF 53%, ECG negative for ischemia
Echocardiogram January 2018: EF 50-55%, mild LVH, no obvious valve abnormalities, limited study
Hemoglobin 12.3, BUN/creatinine 15 and 0.7, potassium 4.3, peak troponin 0.038
Impression:
Dizziness and lightheadedness on admission 01/19/24
Left neck discomfort
Elevated Troponin
HTN urgency
CAD s/p CABG with WORLEY to LAD and SVG to Diag-1 08/09/16
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
Chronic Eliquis OAC for h/o PE
Obese, BMI 42.1
Hyperlipidemia
Plan:
She presents with dizziness/vertiginous symptoms that are likely multifactorial. She has left carotid artery disease that is probably asymptomatic, may have BPPV, and is hypertensive without clear-cut orthostasis. Hypertension could be
contributing, and she is on a multidrug regimen with inadequate control. She is intolerant of spironolactone related to hyperkalemia. She is not currently on a diuretic.
For our part, we will add hydrochlorothiazide 25 mg a day. She will need an outpatient BMP in a week.
Her minimally elevated troponin is likely nonischemic myocardial injury possibly related to hypertension.
.
We can consider repeating her stress test as an outpatient. She has an echocardiogram already scheduled and follow-up with Dr. Elizabeth.
Provided she remains unchanged throughout today we would not object to discharge tomorrow, with addition of hydrochlorothiazide 25 mg a day as the only change from our standpoint.
Original Note:
Consultation
Consultation Request
Date/Time Consultation Requested: 01/20/24 at 0511
Date/Time Consultation Performed: 01/20/24 at 1016
Requesting Provider: Dr. Mackay
Performing Provider: Dr. MALCOM Sosa
Reason for Consultation: Left neck discomfort, elevated Troponin
Medical History
-
History of Present Illness:
Patient came to [facility] last night with dizziness, B/L ear fullness and left neck and head discomfort for days that acutely worsened with increased dizziness and nausea prompting a call to 911 last night. Cardiology is now consulted for elevated
Troponin. Patient says that she started with ear fullness a week ago and she could pop her ears for some relief, but then hear a crackling in her ears. Around that same time she started with an intermittent left neck and head discomfort that she
says could be there all day for hours at a time and the next day no symptoms at all. Yesterday she had sudden worsening of dizziness associated with changes in position without clear provocative factors so she called 911. Orthostatic VS have been
negative, BP actually went up with change in position from supine to sitting and then down a bit from sitting to standing, but asymptomatic. Patient had CT head in the ER that showed no acute intracranial abnormalities. CTA head and neck suggested a
left cervical ICA lesion 65-70%, but no other significant abnormalities. Neurology has seen the patient and dedicated carotid u/s recommended. Cardiology asked to see patient for elevated Troponin that peaked at 0.038. Patient denies chest pain,
previous CABG in 2017 while living in [place] and symptoms at that time were dyspnea. Last stress test at in 2019 is outlined above. No recent exertional symptoms although fairly sedentary which she says is related to weight gain. Also she says
her BP has been difficult to control in the past and is usually worse when she has weight gain.
PMH:
HTN
CAD s/p CABG with WORLEY to LAD and SVG to Diag-1 08/09/16
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
Chronic Eliquis OAC for h/o PE
Obese, BMI 42.1
Hyperlipidemia
Past Medical History
Past Medical History: Other (in HPI)
Past Surgical History: Cardiac (ABG 07/2016), and Orthopedic
Social History
Tobacco: Former Smoker
Alcohol: None
Drug: None
Personal:
Living: With Family
Family History
Family History: CAD, Cancer and Diabetes
Allergies / Home Medications
Allergy/AdvReac Type Severity Reaction Status Date / Time
No Known Allergies Allergy Verified 01/19/24 20:33
�Medication �Instructions �Recorded �Confirmed �Type
apixaban 5 mg tablet (Eliquis) 5 mg PO BID Blood clot 12/06/17 01/20/24 History
prevention/tx
cholecalciferol (vitamin D3) 50 2,000 unit PO BID Supplement 12/06/17 01/20/24 History
mcg (2,000 unit) capsule (Vitamin
D3)
magnesium 250 mg tablet 400 mg PO DAILY Electrolyte 12/06/17 01/20/24 History
Repletion
metoprolol succinate 50 mg 50 mg PO HS Blood pressure 12/06/17 01/20/24 History
tablet,extended release 24 hr
multivitamin 1 ea PO DAILY Supplement 12/06/17 01/20/24 History
omeprazole 40 mg capsule,delayed 40 mg PO NOON Gastrointestinal 12/06/17 01/20/24 History
release issue
rosuvastatin 20 mg tablet 20 mg PO HS High cholesterol 12/06/17 01/20/24 History
aspirin 81 mg tablet,delayed 81 mg PO DAILY Blood clot 03/04/22 01/20/24 History
release prevention/tx
folic acid-vit B6-vit B12 2.5 1 tab PO DAILY Supplement 03/04/22 01/20/24 History
mg-25 mg-1 mg tablet (Folbee)
montelukast 10 mg tablet 10 mg PO HS ASTHMA 03/04/22 01/20/24 History
levothyroxine 50 mcg tablet 50 mcg PO DAILY Thyroid 03/09/22 01/20/24 History
losartan 50 mg tablet 100 mg (2 x 50 mg) PO DAILY #1 tab 03/24/22 01/20/24 Rx
acetaminophen 500 mg tablet 1,000 mg PO Q6H Pain 01/20/24 01/20/24 History
(Acetaminophen Extra Strength)
diphenhydramine 25 2 tab PO HS PRN sleeping 01/20/24 01/20/24 History
mg-acetaminophen 500 mg tablet
(Tylenol PM Extra Strength)
hydralazine 25 mg tablet 25 mg PO BID Blood Pressure 01/20/24 01/20/24 History
Review of Systems
-
History Source: Patient
All other systems: Negative unless noted
Physical Exam
Vital Signs
Temp Pulse Resp BP Pulse Ox
97.9 F 64 16 147/74 98
01/20/24 07:35 01/20/24 07:35 01/20/24 07:35 01/20/24 07:35 01/20/24 07:35
GEN: NAD. AAOx3
HEENT: EOMI, MMM
LUNGS: CTA B/L, no wheezes or rales
CV: Reg, S1/S2, no murmur
ABD: soft, BS+, NT, ND
EXT: No clubbing, cyanosis, lesions or edema B/L
NEURO: Gross non-focal
SKIN: Warm, dry and pink. No rash
Lab Results
01/20/24 08:48
Troponin I 0.038 ng/ml H* 01/20/24 02:10
Impression / Plan
-
PCP: Dr. Pierre Deutsch
Cardiology: Dr. Clara Campoverde
Impression:
Dizziness and lightheadedness on admission 01/19/24
Left neck discomfort
Elevated Troponin
HTN urgency
CAD s/p CABG with WORLEY to LAD and SVG to Diag-1 08/09/16
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
Chronic Eliquis OAC for h/o PE
Obese, BMI 42.1
Hyperlipidemia
Echo 02/13/18: EF 50-55%, mild LVH, normal diastolic function, no MR, normal RV size and function, no aortic regurgitation, mild TR with PAP 31 mmHg
Exercise nuclear stress test 06/24/19: Completed 6 minutes Maikel protocol to reach 95% MPHR, perfusion imaging revealed a small area of mildly decreased perfusion that is fixed in the apical segment, EF 53%
Plan:
-Patient came to [facility] last night with dizziness, B/L ear fullness and left neck and head discomfort for days that acutely worsened with increased dizziness and nausea prompting a call to 911 last night. Cardiology is now consulted for elevated
Troponin. Patient says that she started with ear fullness a week ago and she could pop her ears for some relief, but then hear a crackling in her ears. Around that same time she started with an intermittent left neck and head discomfort that she
says could be there all day for hours at a time and the next day no symptoms at all. Yesterday she had sudden worsening of dizziness associated with changes in position without clear provocative factors so she called 911. Orthostatic VS have been
negative, BP actually went up with change in position from supine to sitting and then down a bit from sitting to standing, but asymptomatic. Patient had CT head in the ER that showed no acute intracranial abnormalities. CTA head and neck suggested a
left cervical ICA lesion 65-70%, but no other significant abnormalities. Neurology has seen the patient and dedicated carotid u/s recommended. Cardiology asked to see patient for elevated Troponin that peaked at 0.038. Patient denies chest pain,
previous CABG in 2017 while living in [place] and symptoms at that time were dyspnea. Last stress test at in 2019 is outlined above. No recent exertional symptoms although fairly sedentary which she says is related to weight gain. Also she says
her BP has been difficult to control in the past and is usually worse when she has weight gain.
-ECG reviewed by me with nonspecific anterior and lateral ST changes that look fairly similar to last office ECG 09/06/23.
-Troponin peaked at 0.038 and will be managed as a nonischemic myocardial injury Troponin elevation due to HTN urgency and pain.
-Patient is agreeable to changes in BP meds. Previously intolerance to amlodipine that caused edema, spironolactone caused hyperkalemia and higher dose Toprol XL caused nightmares. Will try adding HCTZ 25 mg daily.
-Patient will continue her usual meds of hydralazine 35 mg (one 25 mg tablet plus one 10 mg tablet) twice a day, losartan 100 mg daily and Toprol XL 50 mg daily.
-Patient is chronically on Eliquis for h/o unprovoked PE.
-Outpatient echo already scheduled for 01/30/24, would keep this outpatient appt.
-Patient is also scheduled to see Dr. Clara Campoverde 03/11/24
[2024-01-20 09:42] LABS: Troponin I 0.034 ng/ml
[2024-01-20] MEDS: COZAAR 100 MG PO (09:47)
[2024-01-20] MEDS: ASPIR LOW (ENTERIC COATED) 81 MG PO (09:48)
[2024-01-20] MEDS: ELIQUIS 5 MG PO ×2 (09:48→19:42)
[2024-01-20] MEDS: MAGNESIUM OXIDE 500 MG PO (09:48)
[2024-01-20] MEDS: VITAMIN D3 (cholecalciferol) 50 MCG PO ×2 (09:49→19:42)
[2024-01-20 10:01] LABS: Glycohemoglobin (HgbA1c) 5.6 % (4.0-5.6)
[2024-01-20 10:04] LABS: ALT (SGPT) 16 U/L (0-35); AST (SGOT) 26 U/L (14-36); Albumin 4.3 g/dl (3.5-5.0); Alkaline Phosphatase 87 U/L (38-126); Blood Urea Nitrogen 15 mg/dl (7-17); Calcium 10.1 mg/dl (8.4-10.2); Carbon Dioxide 22 mmol/L (22-30); Chloride 108 mmol/L (98-107); Estimated Creatinine Clearance 95 ml/min; Glucose 97 mg/dl (70-99); HDL Cholesterol 68 mg/dl; LDL Cholesterol, Calculated 56 mg/dl; Potassium 4.3 mmol/L (3.5-5.1); Sodium 141 mmol/L (135-145); Total Bilirubin 0.6 mg/dl (0.2-1.3); Total Cholesterol 135 mg/dl (50-199); Total Protein 6.9 g/dl (6.3-8.2); Triglyceride 58 mg/dl (10-149); Very Low Density Lipoprotein 11 mg/dl (0-30); eGFR > 60.00
--- NOTE | 2024-01-20 11:18 | W.PN.VS ---
Today's Communication / Plan
-
carotid duplex
Assessment/Plan
-
vertigo
CTA reviewed - report with 65-70% L ICA stenosis. On my review stenosis looks less significant than this
Regarldless, the symptoms do not appear to be carotid related. No focal deficits
Agree with neuro eval
carotid duplex pending
can follow up in office
call with other questions or changes
Subjective Data
-
Date of Service: January 20, 2024
Asked to see patietn with vertigo
has been going on intermittently for months
denies any focal neuro deficits
no weakness or numbness in any arm or leg
no difficulty speaking
feels it is worth with her glasses
also has some mild left neck pain for at least 6 months
no history of cva or tia
Objective Data
-
Vital Signs
Temp Pulse Resp BP Pulse Ox
98 F 79 16 172/89 97
01/20/24 11:15 01/20/24 11:15 01/20/24 11:15 01/20/24 11:15 01/20/24 11:15
Intake and Output
01/19/24 01/20/24 01/21/24
06:59 06:59 06:59
Other:
Number of approximated SMALL 2
amounts of urine
Lab Results
01/20/24 08:48
01/20/24 08:48
Calcium 10.1 mg/dl (8.4-10.2) 01/20/24 08:48
Total Bilirubin 0.6 mg/dl (0.2-1.3) 01/20/24 08:48
AST 26 U/L (14-36) 01/20/24 08:48
ALT 16 U/L (0-35) 01/20/24 08:48
Alkaline Phosphatase 87 U/L (38-126) 01/20/24 08:48
Total Protein 6.9 g/dl (6.3-8.2) 01/20/24 08:48
Albumin 4.3 g/dl (3.5-5.0) 01/20/24 08:48
Physical Exam
-
rrr
ctab
nt,nd,soft
strength = in upper extremities bilaterally
strength = in lower extremities bilat
2+ radial and carotid pulse bilat
[2024-01-20] MEDS: PROTONIX 40 MG PO (12:10)
[2024-01-20] MEDS: ORETIC 25 MG PO (12:10)
--- NOTE | 2024-01-20 12:50 | CON.MD ---
Consultation - Medical
-
dictated.
Dizziness of uncertain cause but likely multifactorial.
BPPV is a possibility, she had nystagmus sitting up but Katiuska-Hallpike deferred due to severe sx and elevated BP.
Cerebrovascular Insufficiency is very likely, given her carotid stenosis and multiple other risk factors. The perioral tingling with dizziness also points to cerebral ischemia.
Cervical strain may be affecting her balance as well.
Left neck soreness appears to be musculoskeletal. CT notable for cervical arthritis only. She does complain of L upper tooth pain and hasn't seen a dentist in 6 years, but this is probably not related.
The left ear fullness was from cerumen which I removed and it resolved, but could also be from the cervical strain.
Recommend:
Definitely needs continued PT/Vestibular Rehab for the dizziness as well as the cervical strain.
Cervical stretching exercises, massages, heating pad, and antiinflammatories may help.
Awaiting cerebrovascular U/S, MRI, and TFTs.
Needs to see a Dentist for routine care as outpatient.
[2024-01-20 14:05] LABS: TSH Reflex To Free T4 2.07 uIU/ml (0.47-4.68)
[2024-01-20 14:41] LABS: Folate > 20.0 ng/ml (2.76-20)
[2024-01-20] MEDS: TYLENOL 650 MG PO (14:48)
[2024-01-20 15:40] LABS: Vitamin B12 > 1000 pg/ml (239-931)
--- NOTE | 2024-01-20 17:02 | CM ---
Alert awake oriented patient who lives with her Vladimir who lives in a1 story home with 0 steps to enter .She is independent in driving and in all activities of daily living.Offered VN she declined.She may need out pt Vertigo therapy.
No adaptive devices
Never had VN/SNF
Pharmacy [facility]
PCP Dr Trish Deutsch
PLAN Home declined VN
[2024-01-20] MEDS: CRESTOR 20 MG PO (21:22)
[2024-01-20] MEDS: TOPROL XL 50 MG PO (21:22)
[2024-01-20] MEDS: SINGULAIR 10 MG PO (21:22)
[2024-01-21] VITALS (8 sets, daily range): BP systolic 121–164; BP diastolic 70–104
[2024-01-21] MEDS: SYNTHROID 50 MCG PO (05:42)
[2024-01-21 06:27] LABS: Blood Urea Nitrogen 17 mg/dl (7-17); Calcium 10.1 mg/dl (8.4-10.2); Carbon Dioxide 24 mmol/L (22-30); Chloride 106 mmol/L (98-107); Estimated Creatinine Clearance 95 ml/min; Glucose 96 mg/dl (70-99); Potassium 4.2 mmol/L (3.5-5.1); Sodium 139 mmol/L (135-145); eGFR > 60.00
[2024-01-21] MEDS: MAGNESIUM OXIDE 500 MG PO (07:58)
[2024-01-21] MEDS: VITAMIN D3 (cholecalciferol) 50 MCG PO ×2 (07:58→19:53)
[2024-01-21] MEDS: ELIQUIS 5 MG PO ×2 (07:58→19:53)
[2024-01-21] MEDS: ASPIR LOW (ENTERIC COATED) 81 MG PO (07:58)
[2024-01-21] MEDS: ORETIC 25 MG PO (08:00)
[2024-01-21] MEDS: COZAAR 100 MG PO (08:00)
--- NOTE | 2024-01-21 08:21 | W.PN.CARDCBS ---
Today's Communication / Plan
-
Okay for discharge from cardiac standpoint, see recommendations below
Impression / Plan
-
PCP: Dr. Pierre Deutsch
Cardiology: Dr. Clara Campoverde
Impression:
Dizziness and lightheadedness on admission 01/19/24
Left neck discomfort
Elevated Troponin
HTN urgency
CAD s/p CABG with WORLEY to LAD and SVG to Diag-1 08/09/16
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
Chronic Eliquis OAC for h/o PE
Obese, BMI 42.1
Hyperlipidemia
Echo 02/13/18: EF 50-55%, mild LVH, normal diastolic function, no MR, normal RV size and function, no aortic regurgitation, mild TR with PAP 31 mmHg
Exercise nuclear stress test 06/24/19: Completed 6 minutes Maikel protocol to reach 95% MPHR, perfusion imaging revealed a small area of mildly decreased perfusion that is fixed in the apical segment, EF 53%
Plan:
Overall stable.
From cardiac standpoint okay for discharge today.
Recommended cardiac meds at discharge:
Metoprolol ER 50 mg at bedtime
Eliquis 5 mg twice daily
Continue aspirin 81 mg a day, consider discontinuation at follow-up
Hydralazine 35 mg twice daily
Losartan 50 mg twice daily (was 100 mg in a.m. at admission)
Hydrochlorothiazide 25 mg a day (new)
Please arrange for BMP in 1 week.
She is already scheduled for an echocardiogram at 8:20 AM on January 29 and has a follow-up appointment with [facility] on March 11 at 1:20 PM. At that time it can be determined whether follow-up stress test is required.
She presents with dizziness/vertiginous symptoms that are likely multifactorial. She has left carotid artery disease that is probably asymptomatic, may have BPPV, and is hypertensive without clear-cut orthostasis. Hypertension could be
contributing, and she is on a multidrug regimen with inadequate control. She is intolerant of spironolactone related to hyperkalemia. She is not currently on a diuretic.
For our part, we will add hydrochlorothiazide 25 mg a day. She will need an outpatient BMP in a week.
Her minimally elevated troponin is likely nonischemic myocardial injury possibly related to hypertension.
.
We can consider repeating her stress test as an outpatient. She has an echocardiogram already scheduled and follow-up with Dr. Elizabeth.
Provided she remains unchanged throughout today we would not object to discharge tomorrow, with addition of hydrochlorothiazide 25 mg a day as the only change from our standpoint.
Progress Note - Sampler Radioactive Waste
Subjective
Date of Service: January 21, 2024:
Patient feels better, states she has not been receiving hydralazine here in hospital. She takes metoprolol at night, losartan 100 mg in the a.m. and hydralazine is 35 mg twice daily at home, hydrochlorothiazide is new
PMH/PSH/SH/FH: Reviewed
Allergies none
Outpatient meds: Aspirin 81 mg a day, Eliquis 5 mg twice daily, hydralazine 25 twice daily, levothyroxine, losartan 100 mg a day, magnesium, metoprolol ER 50 mg a day, 20 mg a day
Current meds: Rosuvastatin 20 mg at bedtime, singular 10 mg a day, metoprolol ER 50 mg at bedtime, losartan 100 mg daily, aspirin 81 mg daily, apixaban 5 mg twice daily, pantoprazole 40 mg a day, mag oxide 50 mg daily, levothyroxine 50 mcg a day,
vitamin D, hydrochlorothiazide 25 mg daily
ROS negative except as above
136/86, 121/72, pulse 83, resp rate 16, no recent orthostatics was not orthostatic at last check, head neck exam is unremarkable, lungs are clear, regular rate and rhythm, abdomen benign extremities without clubbing cyanosis or edema
Hemoglobin 12.3 yesterday, sodium 139 today, potassium 4.2, BUN and creatinine 17 and 0.7, ferritin is low, MCV is normal, troponin 0.034, LDL was 56, B12 and folate are normal
Objective
Labs:
01/20/24 08:48
01/21/24 05:39
Labs
Hgb 12.3 g/dL (12.0-16.0) 01/20/24 08:48
Hct 36.9 % (37.0-47.0) L 01/20/24 08:48
Plt Count 283 10^3/uL (130-400) 01/20/24 08:48
Sodium 139 mmol/L (135-145) 01/21/24 05:39
Potassium 4.2 mmol/L (3.5-5.1) 01/21/24 05:39
BUN 17 mg/dl (7-17) 01/21/24 05:39
Creatinine 0.7 mg/dL (0.6-1.0) 01/21/24 05:39
Glucose 96 mg/dl (70-99) 01/21/24 05:39
Troponins
01/20/24 01/20/24 01/20/24
00:25 02:10 05:11
Troponin I 0.036 H* 0.038 H* Cancelled
01/20/24 01/20/24
08:48 11:11
Troponin I 0.034 Cancelled
Vital Signs and I&O:
Vital Signs
Temp Pulse Resp BP Pulse Ox
36.6 C 83 16 136/83 95
01/21/24 07:41 01/21/24 07:41 01/21/24 07:41 01/21/24 07:41 01/21/24 07:41
Vital Signs
Temp Pulse Resp BP Pulse Ox
36.6 C 83 16 136/83 95
01/21/24 07:41 01/21/24 07:41 01/21/24 07:41 01/21/24 07:41 01/21/24 07:41
Intake & Output
01/19/24 01/20/24 01/21/2424
07:59 07:59 07:59 07:59
Intake Total 1440 / 1440
Balance 1440 / 1440
Physical Exam
Physical Exam
See above
[2024-01-21] MEDS: TYLENOL 650 MG PO (10:21)
--- NOTE | 2024-01-21 10:36 | W.PN.NEURO.1 ---
Today's Communication / Plan
-
Follow orthostatic blood pressures
Aggressive treatment of headache as this issue may in part be producing the patient's symptomatology
Prochlorperazine PRN headache
Physical therapy evaluations
Check carotid ultrasound to determine if there is a stenosis of 70% or greater which would necessitate either inpatient or outpatient vascular surgery consultation
Outpatient sleep study evaluation due to an underlying sleep disorder potentially producing the patient's recurrent headaches
Neuro Assessment/Plan
Assessment
Abrupt onset of vertigo which is most likely secondary to orthostasis with the patient reporting worsening of sensation with both laying flat as well as sitting up. Differential diagnosis includes vestibular migraine.
CTA head and neck suggested a left internal carotid artery stenosis between 65 and 70%
Plan
Follow orthostatic blood pressures
Aggressive treatment of headache as this issue may in part be producing the patient's symptomatology
Prochlorperazine PRN headache
Physical therapy evaluations
Check carotid ultrasound to determine if there is a stenosis of 70% or greater which would necessitate either inpatient or outpatient vascular surgery consultation
Outpatient sleep study evaluation due to an underlying sleep disorder potentially producing the patient's recurrent headaches
Will follow
Subjective/Objective
Subjective Data
Date of Service: January 21, 2024
'Light-headedness (LH) is still there.'
Objective Data
Vital Signs
Temp Pulse Resp BP Pulse Ox
36.6 C 83 16 136/83 95
01/21/24 07:41 01/21/24 07:41 01/21/24 07:41 01/21/24 07:41 01/21/24 07:41
Lab Results
01/20/24 08:48
01/21/24 05:39
Sodium 139 mmol/L (135-145) 01/21/24 05:39
Potassium 4.2 mmol/L (3.5-5.1) 01/21/24 05:39
BUN 17 mg/dl (7-17) 01/21/24 05:39
Glucose 96 mg/dl (70-99) 01/21/24 05:39
Calcium 10.1 mg/dl (8.4-10.2) 01/21/24 05:39
LDL Cholesterol, Calc 56 mg/dl 01/20/24 08:48
Vitamin B12 > 1000 pg/ml (239-931) H 01/20/24 09:11
Patient Allergies
No Known Allergies Allergy (Verified 01/19/24 20:33)
Review of Systems
-
History Source: Patient
All other systems: Reviewed and negative
EENT: Negative Decreased Vision or Swallowing Difficulty
Respiratory: Negative Trouble Breathing
Cardiac: Negative Chest Pain
Neuro: Dizzy and Headache
Physical Exam
-
General: No Apparent Distress and Appears Stated Age
Eyes: OU Absent Papilledema, Round OU, [place] Conjunctivae and No Ptosis
HEENT: Anicteric and Moist Mucous Membranes
Neck: Full Range of Motion
Respiratory: No Dyspnea
Cardiac: No JVD
GI: Non-distended
Skin: Unremarkable
Extremities: No Clubbing, No Cyanosis and No Edema
Psych: Intact Judgement/Insight
Extended Neurological Exam
Mood & Affect: Mood Unremarkable and Affect Unremarkable
Attention Span & Concentration: Awake, Alert, Interactive and No Difficulty with 2 Step Request
Memory: Unremarkable
Tremor: Hand Tremor Absent and Head Tremor Absent
Speech: Quality Unremarkable and Quantity Unremarkable
Cranial Nerve II: Left Eye: Pupillary Size Unremarkable and Visual [place] Grossly Intact
Cranial Nerve II: Right Eye: Pupillary Size Unremarkable and Visual [place] Grossly Intact
Cranial Nerves III, IV, : Extraocular Movement: Grossly Intact
Cranial Nerve VII: Facial Symmetry: Normal Facial Symmetry
Cranial Nerve VIII: Hearing: Unremarkable Hearing to Normal Conversational Volume
Cranial Nerve XII: Tongue Protusion: Midline
Muscle Strength, Overall: Spontaneously Moves (All extremities)
Muscle Bulk & Tone: Bulk Unremarkable and Tone Unremarkable
Touch Sensation: Unremarkable
Coordination: Reaches for Objects without Difficulty
Data Reviewed
-
Labs: Report Reviewed
Reviewed with: Physician and Patient
Old Records: Summarized
Past History
Past History
ED Past Medical History: CAD, GERD, HTN, Hypercholesterolemia, Hypothyroidism and Other (Pulmonary embolism on DOAC, episode of hyponatremia, left ventricular hypertrophy, obesity)
ED Past Surgical History: Cardiac (CABG 2017), and Orthopedic (Left knee arthroscopy)
Social History
Tobacco: Non-smoker
Alcohol: None
Personal:
Living: with family
Employment: Retired
Family History
Family History: Other (Reviewed and noncontributory)
Medications
-
Medications:
Generic Name Dose Route Start Last Admin
Trade Name Freq PRN Reason Stop Dose Admin
Acetaminophen 650 mg 01/20/24 05:11
Acetaminophen 650 Mg Rectal Suppository RECTAL 02/17/24 05:10
Q4HPRN PRN
MCCABE, mild pain, or temp >100.4F
Acetaminophen 650 mg 01/20/24 05:11 01/21/24 10:21
Acetaminophen 325 Mg Tablet PO 02/17/24 05:10 650 mg
Q4HPRN PRN Administration
MCCABE, mild pain, or temp >100.4F
Apixaban 5 mg 01/20/24 08:00 01/21/24 07:58
Apixaban (Eliquis) 5 Mg Tablet PO 02/17/24 07:59 5 mg
BID RAVI Administration
Aspirin 81 mg 01/20/24 08:00 01/21/24 07:58
Aspirin 81 Mg (Enteric Coated) Tablet PO 02/17/24 07:59 81 mg
DAILY RAVI Administration
Cholecalciferol 50 mcg 01/20/24 08:00 01/21/24 07:58
Cholecalciferol (Vitamin D3) 50 Mcg Tablet (2,000 Units) PO 02/17/24 07:59 50 mcg
BID RAVI Administration
Hydrochlorothiazide 25 mg 01/20/24 11:00 01/21/24 08:00
Hydrochlorothiazide 25 Mg Tablet PO 02/17/24 10:59 25 mg
DAILY RAVI Administration
Levothyroxine Sodium 50 mcg 01/21/24 06:00 01/21/24 05:42
Levothyroxine 50 Mcg Tablet PO 02/18/24 05:59 50 mcg
DAILY@0600 RAVI Administration
Losartan Potassium 100 mg 01/20/24 08:00 01/21/24 08:00
Losartan 100 Mg Tablet PO 02/17/24 07:59 100 mg
DAILY RAVI Administration
Magnesium Oxide 500 mg 01/20/24 08:00 01/21/24 07:58
Magnesium Oxide 500 Mg Tablet PO 02/17/24 07:59 500 mg
DAILY RAVI Administration
Metoprolol Succinate 50 mg 01/20/24 22:00 01/20/24 21:22
Metoprolol 50 Mg Extended Release Tablet PO 02/17/24 21:59 50 mg
HS RAVI Administration
Montelukast Sodium 10 mg 01/20/24 22:00 01/20/24 21:22
Montelukast Sodium 10 Mg Tablet PO 02/17/24 21:59 10 mg
HS RAVI Administration
Pantoprazole Sodium 40 mg 01/20/24 12:00 01/20/24 12:10
Pantoprazole 40 Mg Delayed Release Tablet PO 02/17/24 11:59 40 mg
NOON RAVI Administration
Rosuvastatin Calcium 20 mg 01/20/24 22:00 01/20/24 21:22
Rosuvastatin (Crestor) 20 Mg Tablet PO 02/17/24 21:59 20 mg
HS RAVI Administration
Sodium Chloride 0 flush 01/20/24 05:00
Sodium Chloride 0.9% (Flush) Syringe IV 02/17/24 04:59
PER PROTOCOL RAVI
--- NOTE | 2024-01-21 12:35 | W.PN.HOSP.TC ---
Today's Communication/Plan
-
PT/OT
Blood pressure medications adjusted
Carotid ultrasound still needs to be done and results come out
Assessment / Plan
Assessment / Plan
Physical Exam
General: Not in acute distress
HEENT: Normocephalic. Neck supple.
Respiratory: Clear to Auscultation Bilaterally
Cardiac: S1/S2, Regular Rhythm
GI: Soft, Non Tender, Non Distended and Normal Bowel Sounds
Musculoskeletal: No Edema
Skin: Warm and Dry
Neuro: AAO x 3, Cranial Nerves 2 through 12 grossly intact. Strength and sensation grossly intact bilaterally.
Psych: Calm

CT Head (as per radiologist's report)
IMPRESSION:
No acute intracranial abnormality noted.
CTA Head and Neck (as per radiologist's report)
IMPRESSION:
The cervical carotid and vertebral arteries are patent. Noncalcified plaque at the origin of the left cervical ICA with 65-70% estimated luminal diameter reduction.
No [place] region aneurysm, stenosis, or occlusion.
No cerebral artery significant plaque, stenosis, thrombus, or occlusion.
The right intradural vertebral artery is dominant, with diffuse decreased caliber of the distal left intradural vertebral artery.
Incidental asymmetric left thyroid lobe enlargement with heterogeneous nodularity, for which further evaluation with follow-up nonemergent ultrasound is recommended.
Moderate to advanced bilateral cervical facet arthrosis, left greater than right.
Degree of stenosis based on NASCET criteria.

Assessment/Plan
Acute Vertigo
Left internal carotid artery stenosis between 65 and 70%
History of Vertigo on Meclizine
Left Jaw/Left Neck Pain/Left Submandibular Pain with Left Ear Fullness
Headache
- CT imaging findings as above
- Await carotid ultrasound to determine if there is a stenosis of 70% or greater
- Vascular Surgery consulted, recommendations appreciated: left carotid artery disease that is probably asymptomatic, but still checking ultrasound
- PT/OT
- Neuro consult, recommendations appreciated
- Prochlorperazine PRN headache
- Follow orthostatic blood pressures
- Cardiology consulted, given patient's CABG history and left jaw pain: their impression is left carotid artery disease that is probably asymptomatic, may have BPPV, patient is hypertensive without clear-cut orthostasis, and that
hypertension could be contributing, and patient is on a multidrug regimen with inadequate control. Patient is intolerant of spironolactone related to hyperkalemia, and patient was not on a diuretic at home -- so HCTZ started (see below)
- ENT also consulted given left ear fullness: patient needs continued PT/Vestibular Rehab for the dizziness as well as the cervical strain, cervical stretching exercises, massages, heating pad, and antiinflammatories may help.
- PT/OT
- Outpatient sleep study evaluation to see whether a sleep apnea could be contributing to patient's headaches
History CAD/ CABG
-Continue Rosuvastatin
-Continue aspirin 81 mg a day, consider discontinuation at follow-up
Essential Hypertension
-Continue home Metoprolol ER 50 mg at bedtime
-Continue Hydralazine 35 mg twice daily
-Losartan 50 mg twice daily (was 100 mg in a.m. at admission)
-Hydrochlorothiazide 25 mg a day (new)
-Arrange to have BMP checked in 1 week
History of PE
-Continue Eliquis 5 mg BID
Hypothyroid
-Continue home Levothyroxine
CAD with history of CABG in 2017 - outpatient echocardiogram on January 30, 2024 and follow-up with Dr. Campoverde on 03/11/24
GERD
Hypercholesterolemia
Pulmonary embolism on DOAC
Episode of hyponatremia
Left ventricular hypertrophy
History of Left knee arthroscopy
Osteoarthritis
Morbid obesity BMI 43
DVT Prophylaxis: Eliquis
Code: Full
Anticipated Discharge: 24 - 48 hours
Subjective/Interval History
-
Date of Service: January 21, 2024
Patient was seen and examined. She reported that her left submandibular pain is better today, she still feels a little lightheaded when ambulating.
Objective Data
-
Labs:
Laboratory Results
01/21/24
05:39
Sodium 139
Potassium 4.2
Chloride 106
Carbon Dioxide 24
BUN 17
Creatinine 0.7
Glucose 96
Calcium 10.1
Vital Signs:
Vital Signs
Temp Pulse Resp BP Pulse Ox
98.1 F 61 16 150/70 97
01/21/24 11:21 01/21/24 11:21 01/21/24 11:21 01/21/24 11:21 01/21/24 11:21
I&O
01/20/24 01/21/24 01/22/24
06:59 06:59 06:59
Intake Total 1440 / 1440
Balance 1440 / 1440
[2024-01-21] MEDS: PROTONIX 40 MG PO (12:57)
--- NOTE | 2024-01-21 15:28 | W.PN.ENT ---
Today's Communication
-
Dizziness, with associated headache, perioral tingling highly consistent with cerebrovascular insufficiency.
Cervical strain improved but likely to recur.
L ear fullness resolved after cerumen removal.
Await cerebrovascular U/S, PT delayed [place] testing until after U/S.
PT should be able to help with cervical strain as well.
Neurology recommended outpt Sleep Study.
Has regular f/u with ENT at [facility] for cerumen, regular use of debrox may help.
Call us if we can be of further service.
Impression / Plan
-
Dizziness, with associated headache, perioral tingling highly consistent with cerebrovascular insufficiency.
Cervical strain improved but likely to recur.
L ear fullness resolved after cerumen removal.
Await cerebrovascular U/S, PT delayed [place]-Hallpike testing until after U/S.
PT should be able to help with cervical strain as well.
Neurology recommended outpt Sleep Study.
Has regular f/u with ENT at [facility] for cerumen, regular use of debrox may help.
Call us if we can be of further service.
Subjective Data
-
was feeling much better, then ambulated and felt lightheaded, with some bifrontal MCCABE, correlates with elevated BP.
L neck pain much improved.
Objective Data
-
Vital Signs
Temp Pulse Resp BP Pulse Ox
98.1 F 61 16 150/70 97
01/21/24 11:21 01/21/24 11:21 01/21/24 11:21 01/21/24 11:21 01/21/24 11:21
Intake & Output
01/20/24 01/21/24 01/22/24
06:59 06:59 06:59
Intake:
Oral fluids 1440 / 1440
Other:
Number of approximated SMALL 2
amounts of urine
Number of approximated MODERATE 5
amounts of urine
Lab Results
01/20/24 08:48
01/21/24 05:39
Calcium 10.1 mg/dl (8.4-10.2) 01/21/24 05:39
Total Bilirubin 0.6 mg/dl (0.2-1.3) 01/20/24 08:48
AST 26 U/L (14-36) 01/20/24 08:48
ALT 16 U/L (0-35) 01/20/24 08:48
Alkaline Phosphatase 87 U/L (38-126) 01/20/24 08:48
Triglycerides 58 mg/dl (10-149) 01/20/24 08:48
LDL Cholesterol, Calc 56 mg/dl 01/20/24 08:48
VLDL Cholesterol, Calc 11 mg/dl (0-30) 01/20/24 08:48
HDL Cholesterol 68 mg/dl 01/20/24 08:48
Physical Exam
-
no nystagmus
neck with tense posterior musculature, no masses or tenderness
TFTs normal
U/S pending
[2024-01-21] MEDS: APRESOLINE 35 MG PO (16:15)
[2024-01-21] MEDS: CRESTOR 20 MG PO (21:12)
[2024-01-21] MEDS: SINGULAIR 10 MG PO (21:12)
[2024-01-21] MEDS: TOPROL XL 50 MG PO (21:12)
[2024-01-21] MEDS: FEOSOL 325 MG PO (21:12)
[2024-01-22 03:10] VITALS: BP 129/72
[2024-01-22] MEDS: SYNTHROID 50 MCG PO (06:00)
[2024-01-22 07:00] VITALS: BP 155/89
--- NOTE | 2024-01-22 07:20 | CON.VAS ---
Consultation
Consultation Request
Performing Provider: Diamond
Reason for Consultation: Carotid stenosis
Medical History
-
Chief Complaint: Dizziness
History of Present Illness:
Asked to see patient with vertigo
has been going on intermittently for months
denies any focal neuro deficits
no weakness or numbness in any arm or leg
no difficulty speaking
feels it is worth with her glasses
also has some mild left neck pain for at least 6 months
no history of cva or tia
CTA reviewed - report with 65-70% L ICA stenosis. On my review stenosis looks less significant than this
Past Medical History
Past Medical History: CAD, GERD, HTN, Hypercholesterolemia, Hypothyroidism and Other (DVT on Eliquis)
Past Surgical History: Cardiac and Orthopedic
Social History
Tobacco: Non-Smoker
Alcohol: None
Personal:
Employment: Retired
Family History
Family History: Reviewed & Not Pertinent
Allergies / Home Medications
Allergy/AdvReac Type Severity Reaction Status Date / Time
No Known Allergies Allergy Verified 01/19/24 20:33
�Medication �Instructions �Recorded �Confirmed �Type
apixaban 5 mg tablet (Eliquis) 5 mg PO BID Blood clot 12/06/17 01/20/24 History
prevention/tx
cholecalciferol (vitamin D3) 50 2,000 unit PO BID Supplement 12/06/17 01/20/24 History
mcg (2,000 unit) capsule (Vitamin
D3)
magnesium 250 mg tablet 400 mg PO DAILY Electrolyte 12/06/17 01/20/24 History
Repletion
metoprolol succinate 50 mg 50 mg PO HS Blood pressure 12/06/17 01/20/24 History
tablet,extended release 24 hr
multivitamin 1 ea PO DAILY Supplement 12/06/17 01/20/24 History
omeprazole 40 mg capsule,delayed 40 mg PO NOON Gastrointestinal 12/06/17 01/20/24 History
release issue
rosuvastatin 20 mg tablet 20 mg PO HS High cholesterol 12/06/17 01/20/24 History
aspirin 81 mg tablet,delayed 81 mg PO DAILY Blood clot 03/04/22 01/20/24 History
release prevention/tx
folic acid-vit B6-vit B12 2.5 1 tab PO DAILY Supplement 03/04/22 01/20/24 History
mg-25 mg-1 mg tablet ([place])
montelukast 10 mg tablet 10 mg PO HS ASTHMA 03/04/22 01/20/24 History
levothyroxine 50 mcg tablet 50 mcg PO DAILY Thyroid 03/09/22 01/20/24 History
losartan 50 mg tablet 100 mg (2 x 50 mg) PO DAILY #1 tab 03/24/22 01/20/24 Rx
acetaminophen 500 mg tablet 1,000 mg PO Q6H Pain 01/20/24 01/20/24 History
(Acetaminophen Extra Strength)
diphenhydramine 25 2 tab PO HS PRN sleeping 01/20/24 01/20/24 History
mg-acetaminophen 500 mg tablet
(Tylenol PM Extra Strength)
hydralazine 25 mg tablet 25 mg PO BID Blood Pressure 01/20/24 01/20/24 History
Review of Systems
-
History Source: Patient
All other systems: Negative unless noted
Constitutional: Reports No Symptoms
EENT: Reports No Symptoms
Respiratory: Reports No Symptoms
Cardiac: Reports No Symptoms
Abdomen/GI: Reports No Symptoms
: Reports No Symptoms
Musculoskeletal: Reports No Symptoms
Skin: Reports No Symptoms
Neurological: Reports Dizzy
Endocrine: Reports No Symptoms
Physical Exam
Vital Signs
Temp Pulse Resp BP Pulse Ox
97.9 F 67 16 129/72 96
01/22/24 03:10 01/22/24 03:10 01/22/24 03:10 01/22/24 03:10 01/22/24 03:10
Lab Results
01/20/24 08:48
01/21/24 05:39
Troponin I Cancelled 01/20/24 11:11
Physical Exam
General: No Apparent Distress
HEENT: Normocephalic and Atraumatic
Respiratory: Non Labored Respirations
Cardiac: Negative JVD
GI: Soft, Non Tender and Non Distended
Musculoskeletal: No Clubbing and No Cyanosis
Skin: Warm
Neuro: Other (strength = in upper extremities bilaterally, strength = in lower extremities bilat, 2+ radial and carotid pulse bilat)
Psych: Calm
Assessment / Plan
-
Symptoms do not appear to be carotid related. No focal deficits
Agree with neuro eval
carotid duplex pending
can follow up in office
call with other questions or changes
Data Reviewed
-
CT Scan: Discussed with Patient
Labs: Labs Reviewed by me
--- NOTE | 2024-01-22 07:34 | W.PN.HOSP.TC ---
Today's Communication/Plan
-
discharge
Assessment / Plan
Assessment / Plan
Physical Exam
General: Not in acute distress
HEENT: Normocephalic. Neck supple.
Respiratory: Clear to Auscultation Bilaterally
Cardiac: S1/S2, Regular Rhythm
GI: Soft, Non Tender, Non Distended and Normal Bowel Sounds
Musculoskeletal: No Edema
Skin: Warm and Dry
Neuro: AAO x 3
Psych: Calm

CT Head (as per radiologist's report)
IMPRESSION:
No acute intracranial abnormality noted.
CTA Head and Neck (as per radiologist's report)
IMPRESSION:
The cervical carotid and vertebral arteries are patent. Noncalcified plaque at the origin of the left cervical ICA with 65-70% estimated luminal diameter reduction.
No [facility] [place] region aneurysm, stenosis, or occlusion.
No cerebral artery significant plaque, stenosis, thrombus, or occlusion.
The right intradural vertebral artery is dominant, with diffuse decreased caliber of the distal left intradural vertebral artery.
Incidental asymmetric left thyroid lobe enlargement with heterogeneous nodularity, for which further evaluation with follow-up nonemergent ultrasound is recommended.
Moderate to advanced bilateral cervical facet arthrosis, left greater than right.
Degree of stenosis based on NASCET criteria.

Assessment/Plan
Acute Vertigo, likely BPPV
Left internal carotid artery stenosis between 65 and 70%
History of Vertigo on Meclizine
Left Jaw/Left Neck Pain/Left Submandibular Pain with Left Ear Fullness
Headache
- CT imaging findings as above
-Carotid US appreciated no significant stenosis
- Vascular Surgery consult appreciated outpt follow up recommended
- PT/OT
- Neuro consult, recommendations appreciated Meclizine 25 mg Q8 prn dizziness
- Prochlorperazine PRN headache
- Negative Orthostatics
- Cardiology consult appreciated ECHO 01/22/24 preserved EF 55-60% results similar to study performed 2018
- ENT consult appreciated left ear fullness resolved with cerumen removal
- PT/OT appreciated outpt PT/Vestibular Rehab recommended
- Outpt sleep study recommended
History CAD/ CABG
-Continue Rosuvastatin
-Continue aspirin 81 mg a day, consider discontinuation at follow-up
Essential Hypertension
-Continue home Metoprolol ER 50 mg at bedtime
-Continue Hydralazine 35 mg twice daily
-Losartan 50 mg twice daily (was 100 mg in a.m. at admission)
-Hydrochlorothiazide 25 mg a day (new)
-BMP check in 1 week with primary care provider
History of PE
-Continue Eliquis 5 mg BID
Hypothyroid
-Continue home Levothyroxine
CAD with history of CABG in 2017 - outpatient echocardiogram on January 30, 2024 and follow-up with Dr. Campoverde on 03/11/24
GERD
Hypercholesterolemia
Pulmonary embolism on DOAC
Episode of hyponatremia
Left ventricular hypertrophy
History of Left knee arthroscopy
Osteoarthritis
Morbid obesity BMI 43
DVT Prophylaxis: Eliquis
Code: Full
Medically stable for discharge home with outpt Vestibular therapy and follow up recommendations
discussed with patient and her Vladimir bedside.
Total Time Preparing Discharge ___50____ minutes including examination of the patient, summary of the hospital stay, instructions for continuing care to all relevant caregivers; and preparation of discharge records, prescriptions, and referral
forms if necessary.
Anticipated Discharge: Today
Subjective/Interval History
-
Date of Service: January 22, 2024
Seen and examined at bedside in no acute distress. ambulating without issues. Reporting significant improvement/resolution of dizziness. Eager to go home.
Objective Data
-
Vital Signs:
Vital Signs
Temp Pulse Resp BP Pulse Ox
97.9 F 67 16 129/72 96
01/22/24 03:10 01/22/24 03:10 01/22/24 03:10 01/22/24 03:10 01/22/24 03:10
I&O
01/21/24 01/22/24 01/23/24
06:59 06:59 06:59
Intake Total 1440 / 1440 2340 / 2340
Balance 1440 / 1440 2340 / 2340
[2024-01-22] MEDS: MAGNESIUM OXIDE 500 MG PO (08:13)
[2024-01-22] MEDS: APRESOLINE 35 MG PO (08:14)
[2024-01-22] MEDS: ASPIR LOW (ENTERIC COATED) 81 MG PO (08:16)
[2024-01-22] MEDS: ELIQUIS 5 MG PO (08:16)
[2024-01-22] MEDS: COZAAR 50 MG PO (08:16)
[2024-01-22] MEDS: ORETIC 25 MG PO (08:16)
[2024-01-22] MEDS: VITAMIN D3 (cholecalciferol) 50 MCG PO (08:16)
--- NOTE | 2024-01-22 11:01 | W.PN.NEURO.1 ---
Today's Communication / Plan
-
Pat may go home on Meclizine 25 mg prn q8
Continue Eliquis and aspirin
Repeat carotid US in 12 months
Neuro Assessment/Plan
Assessment
Benign positional vertigo. Differential diagnosis includes vestibular migraine.
Plan
Follow orthostatic blood pressures
Meclizine 25 mg Q 8 prn
Continue Eliquis and aspirin
Follow Neurology OP if recurrent vertigo
Subjective/Objective
Subjective Data
Date of Service: January 22, 2024
Pat is feeling better. Dizziness has resolved. Able to stand and walk without issues. No new complaints
Objective Data
Vital Signs
Temp Pulse Resp BP Pulse Ox
36.8 C 76 18 155/89 95
01/22/24 07:00 01/22/24 08:14 01/22/24 07:00 01/22/24 08:14 01/22/24 07:00
Lab Results
01/20/24 08:48
01/21/24 05:39
Sodium 139 mmol/L (135-145) 01/21/24 05:39
Potassium 4.2 mmol/L (3.5-5.1) 01/21/24 05:39
BUN 17 mg/dl (7-17) 01/21/24 05:39
Glucose 96 mg/dl (70-99) 01/21/24 05:39
Calcium 10.1 mg/dl (8.4-10.2) 01/21/24 05:39
LDL Cholesterol, Calc 56 mg/dl 01/20/24 08:48
Vitamin B12 > 1000 pg/ml (239-931) H 01/20/24 09:11
Patient Allergies
No Known Allergies Allergy (Verified 01/19/24 20:33)
Review of Systems
-
History Source: Patient
All other systems: Reviewed and negative
Constitutional: No Symptoms
EENT: No Symptoms Reported
Respiratory: No Symptoms
Cardiac: No Symptoms
Abdomen/GI: No Symptoms
Genitourinary: No Symptoms
Musculoskeletal: No Symptoms
Skin: No Symptoms
Neuro: No Symptoms
Endocrine: No Symptoms
Hematologic / Lymphatic: No Symptoms
Allergy / Immunology: No Symptoms
Physical Exam
-
General: Well Developed and Well Nourished
Eyes: Unremarkable and No Ptosis
HEENT: Normocephalic, Atraumatic and Unremarkable
Neck: No Bruits Bilaterally
Respiratory: Clear to Auscultation
Cardiac: Regular Rhythm
GI: Normal Bowel Sounds, Soft and Non-tender
Skin: Unremarkable
Extremities: No Clubbing
Psych: Unremarkable
Extended Neurological Exam
Mood & Affect: Mood Unremarkable and Affect Unremarkable
Attention Span & Concentration: Awake, Alert and No Difficulty with 2 Step Request
Memory: Unremarkable and Able to Recall
Tremor: Hand Tremor Absent and Head Tremor Absent
Involuntary Movement: None
Speech: Quality Unremarkable, Quantity Unremarkable and Rate of Production Unremarkable
Cranial Nerve II: Left Eye: Pupillary Reactivity Unremarkable, Pupillary Size Unremarkable, Visual Ortiz Grossly Intact and Visual Ortiz Intact
Cranial Nerve II: Right Eye: Pupillary Reactivity Unremarkable, Pupillary Size Unremarkable and Visual Ortiz Grossly Intact
Cranial Nerves III, IV, : Extraocular Movement: Extraocular Movement Full in all Directions and No Ptosis
Cranial Nerve V: Facial Sensation: Facial Sensation Unremarkable to Cold and Intact to Light Touch
Cranial Nerve VII: Facial Symmetry: Normal Facial Symmetry
Cranial Nerve VIII: Hearing: Unremarkable Hearing to Normal Conversational Volume
Cranial Nerves IX, X: Palate Movement: Palate Elevation Symmetric
Cranial Nerve XI: Shoulder Shrug: Unremarkable
Cranial Nerve XII: Tongue Protusion: Midline
Muscle Strength, Overall: Full Throughout
Muscle Bulk & Tone: Bulk Unremarkable
Pronator Drift: No Drift in Upper Extremities and Drift in Left Lower Extremity
Deep Tendon Reflexes: Unremarkable Throughout
Cold Sensation: Testing in Upper Extremities and Unremarkable
Vibration Sensation: Testing in Upper Extremities and Unremarkable
Touch Sensation: Testing in Upper Extremities and Unremarkable
Coordination: [id number] Testing Unremarkable
Babinski Sign: Absent Bilaterally
Gait & Station: Unremarkable Arm Swing and Up from Seated Without Problem
Modified Paxton Score (MRS)
-
Modified Mary Beth Scale (mRS): No symptoms
Score: 0
Data Reviewed
-
MRI Head: Report Reviewed and Image Reviewed
Carotid Ultrasound: Report Reviewed
[2024-01-22 11:30] VITALS: BP 139/71
[2024-01-22] MEDS: PROTONIX 40 MG PO (11:52)
--- NOTE | 2024-01-22 13:09 | W.PN.CARDCBS ---
Addendum entered and electronically signed by Norman Linn MD 01/22/24 14:26:
I saw and examined the patient.
The COMMUNICATION ASSISTANT or PA's note was reviewed and I agree with the note.
Comment: General: Well developed, well nourished in NAD.
Neck: Supple, no JVD, HJR, carotids +2 B/L, no bruits bilaterally.
Heart: Non displaced PMI, RRR, no murmurs, No S3, S4, no rubs.
Lungs: Scattered rhonchi
Extremities: No clubbing, cyanosis or edema bilaterally.
Neuro: Grossly nonfocal, awake, alert and oriented x3.
Stable cardiology status for discharge. Will check echocardiogram which was scheduled as an outpatient. Follow-up will be arranged
Original Note:
Today's Communication / Plan
-
Echo pending
Cardiology f/u arranged
Impression / Plan
-
PCP: Dr. Pierre Deutsch
Cardiology: Dr. Clara Campoverde
Impression:
Dizziness and lightheadedness on admission 01/19/24
Left neck discomfort
Elevated Troponin
HTN urgency
CAD s/p CABG with WORLEY to LAD and SVG to Diag-1 08/09/16
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
Chronic Eliquis OAC for h/o PE
Obese, BMI 42.1
Hyperlipidemia
Exercise nuclear stress test 06/24/19: Completed 6 minutes Maikel protocol to reach 95% MPHR, perfusion imaging revealed a small area of mildly decreased perfusion that is fixed in the apical segment, EF 53%
Echo 02/13/18: EF 50-55%, mild LVH, normal diastolic function, no MR, normal RV size and function, no aortic regurgitation, mild TR with PAP 31 mmHg
Echo 01/22/24: Study pending
Plan:
-Patient was seen by ENT and cerumen impaction cleared, she has had symptomatic cerumen impactions in the past as well.
-From a cardiac standpoint, patient was previously scheduled for an outpatient echo 01/30/24, but given symptoms on admission will perform echo prior to discharge.
-Left carotid disease evaluated with carotid u/s and vascular surgery consult, no additional work-up or intervention recommended. Hypertension could be contributing, and she is on a multidrug regimen with inadequate control so HCTZ 25 mg daily added
on Monday. Previously intolerance to amlodipine that caused edema, spironolactone caused hyperkalemia and higher dose Toprol XL caused nightmares.
-Outpatient doses of hydralazine 35 mg (one 25 mg tablet plus one 10 mg tablet) twice a day, losartan 100 mg daily and Toprol XL 50 mg daily have been continued.
-Troponin peaked at 0.038 and will be managed as a nonischemic myocardial injury Troponin elevation due to HTN urgency and pain.
-Check BMP in 1 week.
-Cardiology hospital follow up arranged. Patient was also previously scheduled to see Dr. Clara Campoverde on 03/11/24 and wants to keep this appt as well.
Progress Note - Boat Repairer
Subjective
Date of Service: January 22, 2024
Feeling better after ear flushing
Objective
Labs:
01/20/24 08:48
01/21/24 05:39
Labs
Hgb 12.3 g/dL (12.0-16.0) 01/20/24 08:48
Hct 36.9 % (37.0-47.0) L 01/20/24 08:48
Plt Count 283 10^3/uL (130-400) 01/20/24 08:48
Sodium 139 mmol/L (135-145) 01/21/24 05:39
Potassium 4.2 mmol/L (3.5-5.1) 01/21/24 05:39
BUN 17 mg/dl (7-17) 01/21/24 05:39
Creatinine 0.7 mg/dL (0.6-1.0) 01/21/24 05:39
Glucose 96 mg/dl (70-99) 01/21/24 05:39
Troponins
01/20/24 01/20/24 01/20/24
00:25 02:10 05:11
Troponin I 0.036 H* 0.038 H* Cancelled
01/20/24 01/20/24
08:48 11:11
Troponin I 0.034 Cancelled
Vital Signs and I&O:
Vital Signs
Temp Pulse Resp BP Pulse Ox
97.5 F 62 18 139/71 93
01/22/24 11:30 01/22/24 11:30 01/22/24 11:30 01/22/24 11:30 01/22/24 11:30
Vital Signs
Temp Pulse Resp BP Pulse Ox
97.5 F 62 18 139/71 93
01/22/24 11:30 01/22/24 11:30 01/22/24 11:30 01/22/24 11:30 01/22/24 11:30
Intake & Output
01/20/24 01/21/24 01/22/24 01/23/24
06:59 06:59 06:59 06:59
Intake Total 1440 / 1440 2340 / 2340
Balance 1440 / 1440 2340 / 2340
Physical Exam
Physical Exam
GEN: NAD. AAOx3
HEENT: MMM
LUNGS: No audible wheeze
CV: SR on tele
ABD: ND
EXT: No edema B/L
NEURO: Gross non-focal
SKIN: No rash
[2024-01-22 15:00] VITALS: BP 167/86
--- NOTE | 2024-01-22 15:26 | CARDSERVDEF ---
Echocardiogram with Definity completed after protocol screening completed. Allergies verified.
Patent IV site: _R WRIST____
IV site flushed with 0.9% NaCl pre and post administration.
Diluted bolus method utilized to enhance visualization of ventricular hamm.
Total volume given: ___4_ mL
Patient tolerated all procedures well without complications.
--- NOTE | 2024-01-22 16:14 | CM ---
Reviewed chart, patient close to baseline in per therapy. Will most likely be able to return home no needs.
Plan: Case management will continue to follow and assist with discharge planning. Home no needs.
--- NOTE | 2024-01-22 17:50 | W.DCSUMMARY ---
Discharge Summary
Discharge Data
Date of Admission: 01/20/24
Date of Discharge: 01/22/24
-
Pending Results: No
Discharge Plan
-
Patient Disposition: Home (Routine Discharge)
Discharge Diagnosis/Procedures: Acute Vertigo, Benign Paroxysmal Positional Vertigo (BPPV)
History of Vertigo on Meclizine
Headache
History CAD/ CABG
Essential Hypertension
History of PE
Hypothyroid
GERD
Hypercholesterolemia
Osteoarthritis
Morbid obesity BMI 43
Thyroid Nodule
Condition: Good
Diet: Low Cholesterol and 2 Gram Sodium
Activity: As tolerated
Driving Restrictions: As prior to admission
Bathing Restrictions: None
Blood Work: Please repeat BMP with primary care provider in 1 week of discharge
Other Services: PT
Activity Restrictions/Additional Instructions:
Please follow up with primary care provider in 1 week of discharge and keep your appointments with Cardiology and Vascular Surgeon.
Follow up with outpatient PT Vestibular Therapy, script has been provided to facilitate.
Please take medications as prescribed/recommended and follow up with primary care provider and/or other healthcare provider involved in your care for refills and/or further adjustment to your medication regimen as necessary.
Referrals:
Pierre Deutsch MD [Family Provider] - in one week
Clara Campoverde MD [Active] - 02/08/24 1:40 pm
(You are scheduled for a hospital follow up appt at the [place] office on 02/08/24 at 1:[address] Elizabeth's nurse practitioner, Tracey.
You have an appt to see Dr. Clara Campoverde at the [facility] on 03/11/24 at 1:20 PM. Please call [phone] if you need to reschedule.)
Margot Truong CRNP [Specified Professional Personl] - 02/20/24 8:45 am (Vascular surgery follow-up)
Additional Discharge Medication Instructions: -START taking HCTZ (hydrochlorothiazide) 25 mg once a day for hypertension
-Meclizine as needed has been prescribed for dizziness
-Losartan has been divided into twice a day dosing to minimize iatrogenic hypotension/orthostatic hypotension
Prescriptions:
New
hydrochlorothiazide 25 mg Tablet
25 mg PO DAILY Qty: 30 11RF
losartan 50 mg Tablet
50 mg PO BID 30 Days Qty: 60 0RF
meclizine 25 mg tablet
25 mg PO Q8HPRN PRN (Reason: dizziness) 7 Days Qty: 21 0RF
Continued
multivitamin 1 EACH tablet
1 ea PO DAILY
metoprolol succinate 50 MG tablet extended release 24 hr
50 mg PO HS
omeprazole 40 MG capsule,delayed release(DR/EC)
40 mg PO NOON
magnesium 250 MG tablet
400 mg PO DAILY
rosuvastatin 20 MG tablet
20 mg PO HS
cholecalciferol (vitamin D3) [Vitamin D3] 2,000 UNIT capsule
2,000 unit PO BID
Eliquis 5 MG tablet
5 mg PO BID
Hold Instructions: Resume on 03/26/22. DO NOT RESUME UNTIL POST-OPERATIVE DAY 3.
Folbee 2.5-25-1 mg Tablet
1 tab PO DAILY
montelukast 10 mg Tablet
10 mg PO HS
aspirin 81 mg Tablet,Delayed Release (Dr/Ec)
81 mg PO DAILY
levothyroxine 50 mcg Tablet
50 mcg PO DAILY
diphenhydramine-acetaminophen [Tylenol PM Extra Strength] 25-500 mg Tablet
2 tab PO HS PRN (Reason: sleeping)
hydralazine 25 mg tablet
25 mg PO BID
Rx Instructions:
Hold if systolic blood pressure <130 while on Oxycodone.
acetaminophen [Acetaminophen Extra Strength] 500 mg tablet
1,000 mg PO Q6H
Rx Instructions:
DO NOT exceed >4000 mg daily.
Discontinued
losartan 50 MG tablet
100 mg PO DAILY Qty: 1 0RF
Rx Instructions:
Hold if systolic blood pressure <130 while on Oxycodone.
Discharge Orders:
Discharge Patient (As Directed); Ordered 01/22/24
Ordered By: Claudette Pope
Discharge Date and Time
Print Language: [id number]
== END 2024-01-22 18:11 | disposition home or self-care (01) | DRG 149 ==
LOC: 3 WEST ACU 02:07
PROVIDERS: Emergency Medicine; Physician Assistant Medical; ADMITTING PHYSICIAN Internal Medicine; ATTENDING PHYSICIAN Internal Medicine; CONSULT PHYSICIAN Internal Medicine Cardiovascular Disease; CONSULT PHYSICIAN Otolaryngology; CONSULT PHYSICIAN Psychiatry & Neurology Neurology; EMERGENCY PHYSICIAN Emergency Medicine; FAMILY PHYSICIAN Internal Medicine
DX: H81.12 Benign paroxysmal vertigo, left ear (principal); Z68.41 Body mass index [BMI] 40.0-44.9, adult; I5A Non-ischemic myocardial injury (non-traumatic); I65.22 Occlusion and stenosis of left carotid artery; E66.01 Morbid (severe) obesity due to excess calories; E03.9 Hypothyroidism, unspecified; I16.0 Hypertensive urgency; I10 Essential (primary) hypertension; E04.2 Nontoxic multinodular goiter; S16.1XXA Strain of muscle, fascia and tendon at neck level, initial encounter; M47.812 Spondylosis without myelopathy or radiculopathy, cervical region; M54.2 Cervicalgia; H61.22 Impacted cerumen, left ear; I25.10 Atherosclerotic heart disease of native coronary artery without angina pectoris; K21.9 Gastro-esophageal reflux disease without esophagitis; E78.00 Pure hypercholesterolemia, unspecified; M19.90 Unspecified osteoarthritis, unspecified site; Z79.01 Long term (current) use of anticoagulants; Z79.890 Hormone replacement therapy; Z79.899 Other long term (current) drug therapy; Z95.1 Presence of aortocoronary bypass graft; Z86.711 Personal history of pulmonary embolism
CPT/HCPCS: 70450; 70496; 70498; 80048; 80053; 80061; 82607; 82728; 82746; 83036; 84443; 84484; 85025; 85027; 93005; 93306; 93880; 96374; 97116; 97163; 97166; 97530; 99285; Q9957; Q9967

== ENCOUNTER → 2024-01-25 08:51 | Outpatient (REF) | payer MEDICARE, SELFPAY ==
[2024-01-25 12:50] LABS: % Basophils 1.2 % (0-2); % Eosinophils 5.4 % (0-6); % Immature Granulocytes 0.3 % (0-0.5); % Lymphocytes 31.1 % (20.5-51.1); Absolute Basophils 0.1 10^3/uL (0-0.2); Absolute Eosinophils 0.4 10^3/uL (0-0.7); Absolute Lymphocytes 2.4 10^3/uL (1.2-3.4); Absolute Monocytes 0.8 10^3/uL (0.1-0.6); Absolute Neutrophils 4.1 10^3/uL (1.4-6.5); Hematocrit 38.8 % (37.0-47.0); Mean Corp Hgb Conc. 33.5 g/dL (33.0-37.0); Mean Corpuscular Hgb 27.8 pg (27.0-31.0); Mean Corpuscular Volume 83.1 fL (81.0-99.0); Mean Platelet Volume 10.2 fL (7.4-10.4); Nucleated Red Blood Cells % 0 %; Platelet Count 321 10^3/uL (130-400); Red Blood Cell Count 4.67 10^6/uL (4.20-5.40); Red Cell Dist. Width 13.3 % (11.5-14.5); White Blood Cell Count 7.8 10^3/uL (4.8-10.8)
== END ==
LOC: HWLAB 08:51
PROVIDERS: ATTENDING PHYSICIAN Internal Medicine Hematology & Oncology; FAMILY PHYSICIAN Internal Medicine
DX: I26.99 Other pulmonary embolism without acute cor pulmonale (principal); Z79.01 Long term (current) use of anticoagulants
CPT/HCPCS: 36415; 85025

== ENCOUNTER 2024-03-30 11:56 | Emergency (ER) | payer MEDICARE, SELFPAY ==
[2024-03-30 12:03] VITALS: BP 112/74
[2024-03-30 12:12] VITALS: BP 152/119
[2024-03-30 13:00] VITALS: BP 163/72
--- NOTE | 2024-03-30 13:09 | ED.GENMED ---
History of Present Illness
<Delma Blair PA-C - Last Filed: 03/30/24 18:10>
General
Chief Complaint: Breathing Problem
Source: patient
Exam Limitations: none
Time Seen by Provider: 03/30/24 12:16
Nursing documentation reviewed up to this point in time: agreed with
History of Present Illness
History of Present Illness:
Patient is a 73 y.o female with hx PE on eliquis, CAD s/p CABG, hypertension, hyperlipidemia, hypothyroid presenting to the emergency department for evaluation of worsening dyspnea and associated cough. Patient states that she has noticed
intermittent shortness of breath with exertion over the past 2 weeks although this morning she states symptoms were more severe and she felt short of breath at rest. She states that she is working harder to breathe than at her baseline. Patient
does also endorse a frequent cough over the past few days with occasional green/white sputum. Patient denies any associated fever or chills. No chest pain or abdominal pain. Patient denies any lower extremity edema or swelling.
Patient does have a history of CAD for which patient states this feels very different than prior symptoms which have typically been abdominal discomfort. In addition�patient does have a history of pulmonary embolism although patient is compliant
with her Eliquis (5 mg twice daily).
Past History
<Delma Blair PA-C - Last Filed: 03/30/24 18:10>
Past History
ED Past Medical History: CAD, GERD, HTN, Hypercholesterolemia, Hypothyroidism and Other (Pulmonary embolism on DOAC, episode of hyponatremia, left ventricular hypertrophy, obesity)
ED Past Surgical History: Cardiac (CABG 2017), and Orthopedic (Left knee arthroscopy)
Social History
Tobacco: Non-smoker
Alcohol: None
Personal:
Living: with family
Employment: Retired
Family History
Family History: Other (Reviewed and noncontributory)
Review of Systems
<Delma Blair PA-C - Last Filed: 03/30/24 18:10>
Review of Systems
Allergies reviewed?: Yes
All Other Systems: ROS reviewed and negative except as documented in HPI and ROS
Phy Exam
<Delma Blair PA-C - Last Filed: 03/30/24 18:10>
Physical Exam
Physical Exam:
Vitals: Hypertensive, otherwise vital sign stable. Afebrile oxygen saturation 96 on room air
General: Patient is conversational and nontoxic-appearing.
Skin: Warm and dry, no rashes or lesions
Head: Normocephalic, atraumatic
Eyes: Sclera nonicteric. EOMs intact. No nystagmus.
Throat: Protecting airway
Neck: Normal ROM, no cervical spine tenderness, no meningismus. No JVD
Cardiac: Regular rate and rhythm, no murmurs.
Pulm: Scattered rhonchi. No wheezing. Frequent coughing. oxygen saturation 98 on room air.
Abdomen: Abdomen soft. No abdominal tenderness.
Extremities: No evidence of cyanosis or edema. Great distal pulses. Negative Homans' sign bilaterally
Neuro: Grossly intact.
Psychiatric: Normal affect.
Scores
<Delma Blair PA-C - Last Filed: 03/30/24 18:10>
Heart Failure Risk
Heart Failure Risk Score: Not Applicable
Course
<Delma Blair PA-C - Last Filed: 03/30/24 18:10>
Orders/Labs/Results
Orders:
Orders
03/30/24 11:57
Electrocardiogram (*1) Urgent
Reason for Study: Chest Pain
EKG- Treatment ONCE
03/30/24 12:41
CR Chest - 2 Views Urgent
Comment:
Reason For Exam: shortness of breath
03/30/24 13:10
COVID-19 Antigen Urgent
Source: Nasal Swab
Complete Blood Count/With Diff Urgent
Comprehensive Metabolic Panel Urgent
NT-proBNP Urgent
Troponin I Urgent
Influenza A+B Rapid Molecular Urgent
PALOMO Source: Nasal Swab
Specimen Description:
03/30/24 14:15
Troponin I Urgent
03/30/24 15:24
Doxycycline [Vibramycin] 100 mg PO NOW STA
Abnormal Lab Results
03/30/24
13:10
Hct 35.9 L %
(37.0-47.0)
Absolute Monos (auto) 0.7 H 10^3/uL
(0.1-0.6)
Lymphocytes % 19.7 L %
(20.5-51.1)
Glucose 102 H mg/dl
(70-99)
Calcium 10.5 H mg/dl
(8.4-10.2)
03/30/24 13:10
03/30/24 13:10
Vital Signs
Initial and Last Documented VS:
Initial Vital Signs
Temp Pulse Resp BP Pulse Ox
98.3 F 87 1 112/74 98
03/30/24 12:03 03/30/24 12:03 03/30/24 12:03 03/30/24 12:03 03/30/24 12:03
Last Documented Vital Signs
Temp Pulse Resp BP Pulse Ox
98.3 F 58 20 141/74 94
03/30/24 12:03 03/30/24 13:30 03/30/24 13:30 03/30/24 15:00 03/30/24 15:15
<Kylah Saldivar MD - Last Filed: 03/30/24 13:10>
Orders/Labs/Results
Orders:
Orders
03/30/24 11:57
Electrocardiogram (*1) Urgent
Reason for Study: Chest Pain
EKG- Treatment ONCE
03/30/24 12:41
CR Chest - 2 Views Urgent
Comment:
Reason For Exam: shortness of breath
03/30/24 13:10
COVID-19 Antigen Urgent
Source: Nasal Swab
Complete Blood Count/With Diff Urgent
Comprehensive Metabolic Panel Urgent
NT-proBNP Urgent
Troponin I Urgent
Influenza A+B Rapid Molecular Urgent
PALOMO Source: Nasal Swab
Specimen Description:
03/30/24 14:15
Troponin I Urgent
03/30/24 15:24
Doxycycline [Vibramycin] 100 mg PO NOW STA
Abnormal Lab Results
03/30/24
13:10
Hct 35.9 L %
(37.0-47.0)
Absolute Monos (auto) 0.7 H 10^3/uL
(0.1-0.6)
Lymphocytes % 19.7 L %
(20.5-51.1)
Glucose 102 H mg/dl
(70-99)
Calcium 10.5 H mg/dl
(8.4-10.2)
03/30/24 13:10
03/30/24 13:10
Vital Signs
Initial and Last Documented VS:
Initial Vital Signs
Temp Pulse Resp BP Pulse Ox
98.3 F 87 1 112/74 98
03/30/24 12:03 03/30/24 12:03 03/30/24 12:03 03/30/24 12:03 03/30/24 12:03
Last Documented Vital Signs
Temp Pulse Resp BP Pulse Ox
98.3 F 58 20 141/74 94
03/30/24 12:03 03/30/24 13:30 03/30/24 13:30 03/30/24 15:00 03/30/24 15:15
<Delma Blair PA-C - Last Filed: 03/30/24 18:10>
MDM/Problems Addressed
Differential Diagnosis Includes:
Not limited to: Viral illness, bronchitis, pneumonia, pleural effusion, pericarditis, acute coronary syndrome, CHF, doubt pulmonary embolism
MDM/Problems Addressed:
73-year-old female presenting with shortness of breath and cough acutely worse this morning. Patient does report productive cough with occasional green sputum production. No known fevers or chills. No exertional chest pain or pleuritic chest
pain. Patient compliant with Eliquis 5 mg twice daily. Vital signs stable. Patient is afebrile on arrival. Physical exam as above. Patient is relatively well-appearing, nontoxic-appearing. She does frequently cough throughout examination.
Lungs with scattered rhonchi near bases, no wheezing. Oxygen saturation 98 on room air. Heart regular rate and rhythm. No warmth, pain, or edema bilateral lower extremities. Negative Homans' sign bilaterally. Patient is perfusing well.
Differential broad at this time although suspect most likely infectious process given frequent somewhat productive cough including pneumonia, bronchitis, other viral illness. Do not suspect pulmonary embolism given patient's vital signs, symptom
presentation, and compliance with Eliquis. Not complaining of any chest pain. Do not suspect acute coronary syndrome. Will check labs, troponin, BNP. Will check viral swabs and chest x-ray. Will closely monitor and reassess
Chronic conditions affecting care:
Pulmonary embolism on Eliquis, CAD s/p CABG, hypertension, hyperlipidemia
Acute Exacerbation and/or Progression of Chronic Illness:
Acutely hypertensive
<Delma Blair PA-C - Last Filed: 03/30/24 18:10>
*Radiology
Radiology exam reviewed: preliminary read by ED provider and radiology read reviewed
*Pulse Oximetry
Patient hypoxic: no
*EKG
Interpreted by ED Provider?: Yes
EKG Intrepretation Date: 03/30/24
Interpretation: abnormal
Comparison EKG: changes noted
Heart Rate: 82
Rate: normal
Rhythm: sinus
Hilliard: normal axis
Ischemia: non-specific ST changes
*Retail Interior Designer Interpretation
Rate: normal
Interpretation: normal
Heart Rate: 74
Rhythm: sinus
*Critical Care Note
Total Time (30-74mins, 75-104mins- exclusive of procedures): Not Applicable
Data Reviewed
Review of Other/Old Records Reveals: Testing (Echocardiogram performed on 01/22/24 which show normal left ventricular size and function.)
<Delma Blair PA-C - Last Filed: 03/30/24 18:10>
Update Note
Update Note:
Update: Labs reviewed. No clinically significant abnormalities. No leukocytosis. BNP of 325. Do not suspect CHF. Troponin noted to be 0.019. Did repeat which was stable. Do not suspect ACS. COVID and influenza testing were found to be
negative. Chest x-ray shows no evidence of pneumonia. Workup here negative. Suspect likely bronchitis secondary to viral illness given productive cough. Will start patient on doxycycline given significant and frequent productive coughing. Will
send cough syrup as well for patient to use at night. Return precautions discussed at length. Patient will follow closely with both primary and cardiology.
ED Attending Note
<Delma Blair PA-C - Last Filed: 03/30/24 18:10>
-
Portions of this chart may have been created with voice recognition software.� Occasional wrong word or��sound alike� substitutions may have occurred due to the inherent limitations of voice recognition software.
<Kylah Saldivar MD - Last Filed: 03/30/24 13:10>
ED Attending Note
Patient seen and examined by attending physician: Yes
I performed the substantive portion of visit, reviewed & personally made and approve the management plan that is documented in note by myself or DEREK.: Yes
ED Attending Note:
Patient appears nontoxic. She is speaking full sentences but frequently coughing. No calf tenderness. no lower leg edema. Suspicious for pneumonia versus viral illness.
Discharge Plan
Departure
Patient Disposition: Home (Routine Discharge)
Date of Disposition: 03/30/24
Time of Disposition: 15:24
Patient with high blood pressure during this ER visit?: Yes
Condition: Good
Covid-19: Negative COVID-19
Discharge Problem:
Acute bronchitis
Instructions: Acute Bronchitis, Adult (DC), BLOOD PRESSURE
Prescriptions:
New
codeine-guaifenesin 8-200 mg/5 mL liquid
5 ml PO HSPRN PRN (Reason: cough) Qty: 473 0RF
doxycycline hyclate 100 mg capsule
100 mg PO BID Qty: 14 0RF
No Action
multivitamin 1 EACH tablet
1 ea PO DAILY
metoprolol succinate 50 MG tablet extended release 24 hr
50 mg PO HS
omeprazole 40 MG capsule,delayed release(DR/EC)
40 mg PO NOON
magnesium 250 MG tablet
400 mg PO DAILY
rosuvastatin 20 MG tablet
20 mg PO HS
cholecalciferol (vitamin D3) [Vitamin D3] 2,000 UNIT capsule
2,000 unit PO BID
Eliquis 5 MG tablet
5 mg PO BID
Folbee 2.5-25-1 mg Tablet
1 tab PO DAILY
montelukast 10 mg Tablet
10 mg PO HS
aspirin 81 mg Tablet,Delayed Release (Dr/Ec)
81 mg PO DAILY
levothyroxine 50 mcg Tablet
50 mcg PO DAILY
diphenhydramine-acetaminophen [Tylenol PM Extra Strength] 25-500 mg Tablet
2 tab PO HS PRN (Reason: sleeping)
hydralazine 25 mg tablet
35 mg PO BID
Rx Instructions:
Hold if systolic blood pressure <130 while on Oxycodone.
acetaminophen [Acetaminophen Extra Strength] 500 mg tablet
1,000 mg PO Q6H
Rx Instructions:
DO NOT exceed >4000 mg daily.
hydrochlorothiazide 25 mg Tablet
25 mg PO DAILY Qty: 30 11RF
losartan 50 mg Tablet
50 mg PO BID 30 Days Qty: 60 0RF
meclizine 25 mg tablet
25 mg PO Q8HPRN PRN (Reason: dizziness) 7 Days Qty: 21 0RF
Referrals:
Pierre Deutsch MD [Family Provider] - Follow up in 2-3 days
Activity Restrictions/Additional Instructions:
RETURN TO THE EMERGENCY DEPARTMENT WITH FEVERS, CHILLS, CHEST PAIN, SHORTNESS OF BREATH, COUGHING UP BLOOD, WORSENING IN CURRENT SYMPTOMS, OR ANY OTHER CONCERNS
-Your prescriptions have been sent to the pharmacy. You should take the antibiotic twice a day for the next week. The cough syrup you can take at night if coughing persists. This may cause drowsiness and you should not take prior to driving.
-You can try saline nasal spray, humidifier, cough drops, as well. It is important stay well-hydrated
-Follow-up with your primary care and cardiology for further evaluation/management.
Monitor symptoms closely and return to the emergency department with any acute worsening/new symptoms
Interventions
Interventions:
*Risk Screen - Suicide Last Done: 03/30/24 11:58
*General Assessment Last Done: 03/30/24 12:03
*Neglect/Abuse Screening Last Done: 03/30/24 12:03
ED- Fall Risk Assessment Last Done: 03/30/24 15:47
*ED COVID-19 Vaccine History Last Done: 03/30/24 13:28
*Nursing Disposition Last Done: 03/30/24 15:47
ED- Cardiac Assessment Last Done: 03/30/24 12:18
ED- Pulmonary Assessment Last Done: 03/30/24 13:27
Discharge Date and Time
Discharge Date/Time: 03/30/24 15:45
Print Language: SINHALA
[2024-03-30 13:27] LABS: % Basophils 0.8 % (0-2); % Eosinophils 3.1 % (0-6); % Immature Granulocytes 0.4 % (0-0.5); % Lymphocytes 19.7 % (20.5-51.1); % Monocytes 8.2 % (1.7-9.3); % Neutrophils 67.8 % (42.2-75.2); Absolute Basophils 0.1 10^3/uL (0-0.2); Absolute Eosinophils 0.3 10^3/uL (0-0.7); Absolute Lymphocytes 1.7 10^3/uL (1.2-3.4); Absolute Monocytes 0.7 10^3/uL (0.1-0.6); Absolute Neutrophils 5.8 10^3/uL (1.4-6.5); Hematocrit 35.9 % (37.0-47.0); Hemoglobin 12.3 g/dL (12.0-16.0); Mean Corp Hgb Conc. 34.3 g/dL (33.0-37.0); Mean Corpuscular Hgb 28.2 pg (27.0-31.0); Mean Corpuscular Volume 82.3 fL (81.0-99.0); Mean Platelet Volume 9.6 fL (7.4-10.4); Nucleated Red Blood Cells % 0 %; Platelet Count 302 10^3/uL (130-400); Red Blood Cell Count 4.36 10^6/uL (4.20-5.40); Red Cell Dist. Width 13.2 % (11.5-14.5); White Blood Cell Count 8.5 10^3/uL (4.8-10.8)
[2024-03-30 13:44] LABS: ALT (SGPT) 16 U/L (0-35); AST (SGOT) 34 U/L (14-36); Albumin 4.4 g/dl (3.5-5.0); Alkaline Phosphatase 83 U/L (38-126); Blood Urea Nitrogen 16 mg/dl (7-17); COVID-19 Antigen Negative (Negative); Calcium 10.5 mg/dl (8.4-10.2); Carbon Dioxide 25 mmol/L (22-30); Chloride 101 mmol/L (98-107); Glucose 102 mg/dl (70-99); Potassium 4.5 mmol/L (3.5-5.1); Sodium 141 mmol/L (135-145); Total Bilirubin 0.7 mg/dl (0.2-1.3); eGFR > 60.00
[2024-03-30 13:56] LABS: NT-proBNP 325 pg/ml; Troponin I 0.019 ng/ml
[2024-03-30 14:14] VITALS: BP 147/66
[2024-03-30 14:48] LABS: Troponin I 0.019 ng/ml
[2024-03-30 15:00] VITALS: BP 141/74
[2024-03-30] MEDS: VIBRAMYCIN 100 MG PO (15:34)
== END 2024-03-30 15:45 | disposition home or self-care (01) ==
LOC: EMR 11:56
PROVIDERS: Physician Assistant; EMERGENCY PHYSICIAN Emergency Medicine; FAMILY PHYSICIAN Internal Medicine
DX: J20.9 Acute bronchitis, unspecified (principal); Z11.52 Encounter for screening for COVID-19; I25.10 Atherosclerotic heart disease of native coronary artery without angina pectoris; I10 Essential (primary) hypertension; E78.00 Pure hypercholesterolemia, unspecified; K21.9 Gastro-esophageal reflux disease without esophagitis; E03.9 Hypothyroidism, unspecified; E66.9 Obesity, unspecified; Z95.1 Presence of aortocoronary bypass graft; Z86.711 Personal history of pulmonary embolism; Z79.01 Long term (current) use of anticoagulants
CPT/HCPCS: 99283; 71046; 80053; 83880; 84484; 85025; 87502; 87811; 93005

== ENCOUNTER → 2024-04-16 15:26 | Outpatient (REF) | payer MEDICARE, SELFPAY | LOC: HWRAD 15:26 | PROVIDERS: ATTENDING PHYSICIAN Internal Medicine | DX: J34.89 Other specified disorders of nose and nasal sinuses (principal) | CPT/HCPCS: 70486 ==

== ENCOUNTER 2024-05-24 14:08 | Emergency (ER) | payer MEDICARE, SELFPAY ==
[2024-05-24] VITALS (9 sets, daily range): BP systolic 127–157; BP diastolic 57–88; BMI 39.6
[2024-05-24 15:23] LABS: % Basophils 0.7 % (0-2); % Eosinophils 1.5 % (0-6); % Immature Granulocytes 0.4 % (0-0.5); % Lymphocytes 27.4 % (20.5-51.1); % Monocytes 9.1 % (1.7-9.3); % Neutrophils 60.9 % (42.2-75.2); Absolute Basophils 0.1 10^3/uL (0-0.2); Absolute Eosinophils 0.1 10^3/uL (0-0.7); Absolute Lymphocytes 2.6 10^3/uL (1.2-3.4); Absolute Monocytes 0.9 10^3/uL (0.1-0.6); Absolute Neutrophils 5.9 10^3/uL (1.4-6.5); Hematocrit 36.7 % (37.0-47.0); Hemoglobin 12.4 g/dL (12.0-16.0); Mean Corp Hgb Conc. 33.8 g/dL (33.0-37.0); Mean Corpuscular Hgb 28.6 pg (27.0-31.0); Mean Corpuscular Volume 84.8 fL (81.0-99.0); Nucleated Red Blood Cells % 0 %; Platelet Count 369 10^3/uL (130-400); Red Blood Cell Count 4.33 10^6/uL (4.20-5.40); Red Cell Dist. Width 13.2 % (11.5-14.5); White Blood Cell Count 9.6 10^3/uL (4.8-10.8)
--- NOTE | 2024-05-24 15:26 | ED.GENMED ---
History of Present Illness
<FIDEL Lara Jr. Last Filed: 05/27/24 16:23>
General
Chief Complaint: Breathing Problem
Source: patient and spouse
Exam Limitations: none
Time Seen by Provider: 05/24/24 14:36
Nursing documentation reviewed up to this point in time: agreed with
History of Present Illness
History of Present Illness:
The patient is a 73-year-old female past medical history of previous PE currently on Eliquis, CAD hypertension hyperlipidemia presenting to the emergency multiple concerns. She claims over the past few days she has noticed occasional discomfort to
her mouth. She did have multiple dental extractions 2 weeks ago at this time felt okay we did have to stop Eliquis for 3 days surrounding the procedure. She is noticed additional upper abdominal discomfort with associated nausea pain increased
with deep breaths. No specific chest pain but does have pain to the upper abdomen. Denies any numbness weakness no vomiting no fevers.
Past History
<FIDEL Lara Jr. Last Filed: 05/27/24 16:23>
Past History
ED Past Medical History: CAD, GERD, HTN, Hypercholesterolemia, Hypothyroidism and Other (Pulmonary embolism on DOAC, episode of hyponatremia, left ventricular hypertrophy, obesity)
ED Past Surgical History: Cardiac (CABG 2017), and Orthopedic (Left knee arthroscopy)
Social History
Tobacco: Non-smoker
Alcohol: None
Personal:
Living: with family
Employment: Retired
Family History
Family History: Other (Reviewed and noncontributory)
Review of Systems
<FIDEL Lara Jr. Last Filed: 05/27/24 16:23>
Review of Systems
Allergies reviewed?: Yes
All Other Systems: ROS reviewed and negative except as documented in HPI and ROS
Phy Exam
<FIDEL Lara Jr. Last Filed: 05/27/24 16:23>
Physical Exam
Physical Exam:
GENERAL: Alert , in no apparent distress
EYE: pupils equal and reactive
NECK: Supple, no significant adenopathy.
ENT: o/p clr, mmm.
CARDIAC: Regular rate and rhythm .
LUNGS: Clear breath sounds bilaterally, no acute respiratory distress, no wheezes/rales/rhonchi
ABDOMEN: Reproducible abdominal discomfort to the upper abdomen otherwise soft benign abdomen to lower abdomen.
NEUROLOGICAL: Alert and oriented, no focal neuro deficits
SKIN: Warm and dry, skin intact.
MUSCULOSKELETAL: No edema, well perfused.
PSYCH: Normal and appropriate interaction.
Scores
<CONCHITA Kamara - Last Filed: 05/24/24 22:10>
Heart Failure Risk
Heart Failure Risk Score: Not Applicable
Course
<Hema Jenkins Jr., PA-C - Last Filed: 05/27/24 16:23>
Orders/Labs/Results
Orders:
Orders
05/24/24 14:15
ECG [Electrocardiogram (*1)] Urgent
Reason for Study: Chest Pain
Other Reason for Exam: abdominal pain
05/24/24 14:16
EKG- Treatment ONCE
05/24/24 14:36
Chest [CR Chest - 2 Views ] Urgent
Comment:
Reason For Exam: sob
05/24/24 14:54
CT Abd/Pel (IV only)-DH only Urgent
Comment:
Reason For Exam: diffuse abd pain,
05/24/24 15:16
Complete Blood Count/With Diff Urgent
Comprehensive Metabolic Panel Urgent
Lipase Urgent
Comment: ADD ON
Troponin I Urgent
05/24/24 16:29
Add On- LAB Urgent
Tests Added?: lipase
05/24/24 19:22
DDimer [D-Dimer] Urgent
05/24/24 20:00
CT Chest Pe Study Urgent
Comment:
Reason For Exam: pain with deep breath hx of PE
05/24/24 20:48
0.9% Sodium Chloride 1000 ml [Nss] 1,000 ml IV BOLUS
Abnormal Lab Results
05/24/24 05/24/24
15:16 19:22
Hct 36.7 L %
(37.0-47.0)
Absolute Monos (auto) 0.9 H 10^3/uL
(0.1-0.6)
D-Dimer 0.56 H ug/mlFEU
(0.00-0.50)
Chloride 97 L mmol/L
(98-107)
Glucose 104 H mg/dl
(70-99)
05/24/24 15:16
05/24/24 15:16
Vital Signs
Initial and Last Documented VS:
Initial Vital Signs
Temp Pulse Resp BP Pulse Ox
98.6 F 72 16 157/88 99
05/24/24 14:11 05/24/24 14:11 05/24/24 14:11 05/24/24 14:11 05/24/24 14:11
Last Documented Vital Signs
Temp Pulse Resp BP Pulse Ox
98.6 F 77 21 135/59 96
05/24/24 14:11 05/24/24 22:00 05/24/24 22:00 05/24/24 22:00 05/24/24 22:00
<CONCHITA Kamara - Last Filed: 05/24/24 22:10>
Orders/Labs/Results
Orders:
Orders
05/24/24 14:15
ECG [Electrocardiogram (*1)] Urgent
Reason for Study: Chest Pain
Other Reason for Exam: abdominal pain
05/24/24 14:16
EKG- Treatment ONCE
05/24/24 14:36
Chest [CR Chest - 2 Views ] Urgent
Comment:
Reason For Exam: sob
05/24/24 14:54
CT Abd/Pel (IV only)-DH only Urgent
Comment:
Reason For Exam: diffuse abd pain,
05/24/24 15:16
Complete Blood Count/With Diff Urgent
Comprehensive Metabolic Panel Urgent
Lipase Urgent
Comment: ADD ON
Troponin I Urgent
05/24/24 16:29
Add On- LAB Urgent
Tests Added?: lipase
05/24/24 19:22
DDimer [D-Dimer] Urgent
05/24/24 20:00
CT Chest Pe Study Urgent
Comment:
Reason For Exam: pain with deep breath hx of PE
05/24/24 20:48
0.9% Sodium Chloride 1000 ml [Nss] 1,000 ml IV BOLUS
Abnormal Lab Results
05/24/24 05/24/24
15:16 19:22
Hct 36.7 L %
(37.0-47.0)
Absolute Monos (auto) 0.9 H 10^3/uL
(0.1-0.6)
D-Dimer 0.56 H ug/mlFEU
(0.00-0.50)
Chloride 97 L mmol/L
(98-107)
Glucose 104 H mg/dl
(70-99)
05/24/24 15:16
05/24/24 15:16
Vital Signs
Initial and Last Documented VS:
Initial Vital Signs
Temp Pulse Resp BP Pulse Ox
98.6 F 72 16 157/88 99
05/24/24 14:11 05/24/24 14:11 05/24/24 14:11 05/24/24 14:11 05/24/24 14:11
Last Documented Vital Signs
Temp Pulse Resp BP Pulse Ox
98.6 F 77 21 135/59 96
05/24/24 14:11 05/24/24 22:00 05/24/24 22:00 05/24/24 22:00 05/24/24 22:00
<Hema Jenkins Jr., PA-C - Last Filed: 05/27/24 16:23>
MDM/Problems Addressed
MDM/Problems Addressed:
71-year-old female presenting to the emergency today with concerns of mainly upper abdominal discomfort made worse with deep breaths reproducible to palpation throughout the upper abdomen no pain to the lower abdomen. Normal heart sounds and clear
lungs. Denies any ongoing facial throat or dental pain. No specific shortness of breath or chest pain at this point. Initial EKG without significant acute changes.
<CONCHITA Kamara - Last Filed: 05/24/24 22:10>
MDM/Problems Addressed
MDM/Problems Addressed:
71-year-old female presenting to the emergency today with concerns of mainly upper abdominal discomfort made worse with deep breaths reproducible to palpation throughout the upper abdomen no pain to the lower abdomen. Normal heart sounds and clear
lungs. Denies any ongoing facial throat or dental pain. No specific shortness of breath or chest pain at this point. Initial EKG without significant acute changes.
Received signout from CYRUS Levin.
Patient had a CAT scan of the abdomen which is unremarkable for acute findings. In addition she had a lipase which was normal. I did reexamine patient patient describes pain under her left rib area worse with taking a deep breath she is also
slightly tender on exam to the left rib area. pain has been for past several days w/ deep breath, not Midsternal . trop at baseline. ekg view slightly more pronounced t waves
t
Patient does have a history of PE however she is on Eliquis she did stop it over a week and a half ago for several days when she had a tooth extracted but has been back on it since.
d/c with DR Ortega will check d dimer. Patient does report that she saw her family doctor and she was sent in to rule out PE
D-dimer mildly elevated however with patient's complaint of pain with deep breath will ct chest. she did have ct abd however nml renal function. Pt was given fluids.
CAT scan negative for acute PE.
There is cholelithiasis on CAT scan and incidental large nodule left lobe of the thyroid gland which will need ultrasound.
She is aware of this thyroid nodule.
Symptoms are likely musculoskeletal, pleuritic versus costochondritis will DC with Tylenol /close fu by pcp
<CONCHITA Kamara - Last Filed: 05/24/24 22:10>
*Critical Care Note
Total Time (30-74mins, 75-104mins- exclusive of procedures): Not Applicable
ED Attending Note
<Hema Jenkins Jr., PA-C - Last Filed: 05/27/24 16:23>
-
Portions of this chart may have been created with voice recognition software.� Occasional wrong word or��sound alike� substitutions may have occurred due to the inherent limitations of voice recognition software.
Discharge Plan
Departure
Patient Disposition: Home (Routine Discharge)
Date of Disposition: 05/24/24
Time of Disposition: 22:02
Patient with high blood pressure during this ER visit?: No
Condition: Fair
Covid-19: Not Applicable
Discharge Problem:
rib pain
Prescriptions:
No Action
multivitamin 1 EACH tablet
1 ea PO DAILY
metoprolol succinate 50 MG tablet extended release 24 hr
50 mg PO HS
omeprazole 40 MG capsule,delayed release(DR/EC)
40 mg PO NOON
magnesium 250 MG tablet
400 mg PO DAILY
rosuvastatin 20 MG tablet
20 mg PO HS
cholecalciferol (vitamin D3) [Vitamin D3] 2,000 UNIT capsule
2,000 unit PO BID
Eliquis 5 MG tablet
5 mg PO BID
Folbee 2.5-25-1 mg Tablet
1 tab PO DAILY
montelukast 10 mg Tablet
10 mg PO HS
aspirin 81 mg Tablet,Delayed Release (Dr/Ec)
81 mg PO DAILY
levothyroxine 50 mcg Tablet
50 mcg PO DAILY
diphenhydramine-acetaminophen [Tylenol PM Extra Strength] 25-500 mg Tablet
2 tab PO HS PRN (Reason: sleeping)
hydralazine 25 mg tablet
35 mg PO BID
Rx Instructions:
Hold if systolic blood pressure <130 while on Oxycodone.
acetaminophen [Acetaminophen Extra Strength] 500 mg tablet
1,000 mg PO Q6H
Rx Instructions:
DO NOT exceed >4000 mg daily.
hydrochlorothiazide 25 mg Tablet
25 mg PO DAILY Qty: 30 11RF
losartan 50 mg Tablet
50 mg PO BID 30 Days Qty: 60 0RF
meclizine 25 mg tablet
25 mg PO Q8HPRN PRN (Reason: dizziness) 7 Days Qty: 21 0RF
codeine-guaifenesin 8-200 mg/5 mL liquid
5 ml PO HSPRN PRN (Reason: cough) Qty: 473 0RF
doxycycline hyclate 100 mg capsule
100 mg PO BID Qty: 14 0RF
Referrals:
Clara Campoverde MD [Active] -
UNKNOWN - PT DOES,NOT KNOW [Unknown Provider] -
Activity Restrictions/Additional Instructions:
Symptoms are consistent with pleuritic type pain possible inflammation in the cartilage, possibly pleurisy .
as discussed you may take Tylenol for discomfort. Return if any worsening of symptoms including worsening pain shortness of breath. Please follow-up with family doctor the extremities call Monday to make an appointment. In addition please
follow-up with your paper rewinder operator.
Interventions
Interventions:
*Risk Screen - Suicide Last Done: 05/24/24 15:35
*General Assessment Last Done: 05/24/24 15:35
*Neglect/Abuse Screening Last Done: 05/24/24 15:35
ED- Fall Risk Assessment Last Done: 05/24/24 19:46
*ED COVID-19 Vaccine History Last Done: 05/24/24 19:24
*Nursing Disposition Last Done: 05/24/24 22:09
ED- Cardiac Assessment Last Done: 05/24/24 15:35
ED- Pulmonary Assessment Last Done: 05/24/24 15:35
Discharge Date and Time
Discharge Date/Time: 05/24/24 22:21
Print Language: ARMENIAN
[2024-05-24 15:39] LABS: ALT (SGPT) 16 U/L (0-35); AST (SGOT) 29 U/L (14-36); Albumin 4.8 g/dl (3.5-5.0); Alkaline Phosphatase 60 U/L (38-126); Blood Urea Nitrogen 14 mg/dl (7-17); Calcium 10.1 mg/dl (8.4-10.2); Carbon Dioxide 26 mmol/L (22-30); Chloride 97 mmol/L (98-107); Glucose 104 mg/dl (70-99); Potassium 4.5 mmol/L (3.5-5.1); Sodium 136 mmol/L (135-145); Total Bilirubin 0.7 mg/dl (0.2-1.3); Total Protein 7.5 g/dl (6.3-8.2); eGFR > 60.00
[2024-05-24 15:50] LABS: Troponin I 0.023 ng/ml
[2024-05-24 16:46] LABS: Lipase 117 U/L (23-300)
[2024-05-24 19:48] LABS: D-Dimer 0.56 ug/mlFEU (0.00-0.50)
[2024-05-24] MEDS: NSS 1000 IV (20:58)
== END 2024-05-24 22:21 | disposition home or self-care (01) ==
LOC: EMR 14:08
PROVIDERS: Emergency Medicine; Nurse Practitioner; EMERGENCY PHYSICIAN Emergency Medicine; FAMILY PHYSICIAN Internal Medicine
DX: R07.81 Pleurodynia (principal); I10 Essential (primary) hypertension; E78.00 Pure hypercholesterolemia, unspecified; Z86.711 Personal history of pulmonary embolism; Z79.01 Long term (current) use of anticoagulants; I25.10 Atherosclerotic heart disease of native coronary artery without angina pectoris
CPT/HCPCS: 99285; 96360; 71046; 71275; 74177; 80053; 83690; 84484; 85025; 85379; 93005; Q9967

== ENCOUNTER → 2024-06-28 07:23 | Outpatient (REF) | payer MEDICARE, SELFPAY ==
[2024-06-28 10:02] LABS: % Basophils 0.8 % (0-2); % Immature Granulocytes 0.3 % (0-0.5); % Lymphocytes 30.4 % (20.5-51.1); % Monocytes 6.2 % (1.7-9.3); % Neutrophils 57.3 % (42.2-75.2); Absolute Basophils 0.1 10^3/uL (0-0.2); Absolute Eosinophils 0.4 10^3/uL (0-0.7); Absolute Lymphocytes 2.6 10^3/uL (1.2-3.4); Absolute Monocytes 0.5 10^3/uL (0.1-0.6); Absolute Neutrophils 4.9 10^3/uL (1.4-6.5); Hematocrit 37.5 % (37.0-47.0); Hemoglobin 12.3 g/dL (12.0-16.0); Mean Corp Hgb Conc. 32.8 g/dL (33.0-37.0); Mean Corpuscular Hgb 29.1 pg (27.0-31.0); Mean Corpuscular Volume 88.9 fL (81.0-99.0); Mean Platelet Volume 9.7 fL (7.4-10.4); Nucleated Red Blood Cells % 0 %; Platelet Count 318 10^3/uL (130-400); Red Blood Cell Count 4.22 10^6/uL (4.20-5.40); Red Cell Dist. Width 13.2 % (11.5-14.5); White Blood Cell Count 8.6 10^3/uL (4.8-10.8)
[2024-06-28 10:30] LABS: Free T4 0.98 ng/dl (0.78-2.19)
[2024-06-28 10:41] LABS: ALT (SGPT) 17 U/L (0-35); AST (SGOT) 25 U/L (14-36); Albumin 4.3 g/dl (3.5-5.0); Alkaline Phosphatase 59 U/L (38-126); Blood Urea Nitrogen 16 mg/dl (7-17); Calcium 9.8 mg/dl (8.4-10.2); Carbon Dioxide 29 mmol/L (22-30); Chloride 99 mmol/L (98-107); Glucose 98 mg/dl (70-99); Potassium 4.2 mmol/L (3.5-5.1); Sodium 137 mmol/L (135-145); Total Bilirubin 0.9 mg/dl (0.2-1.3); Total Protein 6.8 g/dl (6.3-8.2); eGFR > 60.00
[2024-06-28 10:43] LABS: TSH 1.98 uIU/ml (0.47-4.68)
== END ==
LOC: HWLAB 07:23
PROVIDERS: ATTENDING PHYSICIAN Internal Medicine
DX: I10 Essential (primary) hypertension (principal)
CPT/HCPCS: 36415; 80053; 84439; 84443; 85025

== ENCOUNTER → 2024-09-16 07:00 | Outpatient (REF) | payer MEDICARE, SELFPAY ==
[2024-09-16 09:55] LABS: % Basophils 0.9 % (0-2); % Eosinophils 6.3 % (0-6); % Immature Granulocytes 0.3 % (0-0.5); % Lymphocytes 33.6 % (20.5-51.1); % Neutrophils 51.9 % (42.2-75.2); Absolute Basophils 0.1 10^3/uL (0-0.2); Absolute Eosinophils 0.5 10^3/uL (0-0.7); Absolute Lymphocytes 2.6 10^3/uL (1.2-3.4); Absolute Monocytes 0.5 10^3/uL (0.1-0.6); Hematocrit 34.6 % (37.0-47.0); Hemoglobin 11.6 g/dL (12.0-16.0); Mean Corp Hgb Conc. 33.5 g/dL (33.0-37.0); Mean Corpuscular Hgb 29.1 pg (27.0-31.0); Mean Corpuscular Volume 86.7 fL (81.0-99.0); Mean Platelet Volume 9.9 fL (7.4-10.4); Nucleated Red Blood Cells % 0 %; Platelet Count 324 10^3/uL (130-400); Red Blood Cell Count 3.99 10^6/uL (4.20-5.40); Red Cell Dist. Width 13.3 % (11.5-14.5); White Blood Cell Count 7.7 10^3/uL (4.8-10.8)
[2024-09-16 10:10] LABS: Blood Urea Nitrogen 13 mg/dl (7-17); Carbon Dioxide 28 mmol/L (22-30); Chloride 101 mmol/L (98-107); Glucose 98 mg/dl (70-99); Potassium 3.9 mmol/L (3.5-5.1); Sodium 137 mmol/L (135-145); eGFR > 60.00
== END ==
LOC: HWLAB 07:00
PROVIDERS: ATTENDING PHYSICIAN Internal Medicine Hematology & Oncology; FAMILY PHYSICIAN Internal Medicine
DX: E87.1 Hypo-osmolality and hyponatremia (principal); I26.99 Other pulmonary embolism without acute cor pulmonale; Z79.01 Long term (current) use of anticoagulants
CPT/HCPCS: 36415; 80048; 85025

== ENCOUNTER → 2024-09-17 10:43 | Outpatient (REF) | payer MEDICARE, SELFPAY | LOC: RAD 10:43 | PROVIDERS: ATTENDING PHYSICIAN Surgery Vascular Surgery; FAMILY PHYSICIAN Internal Medicine Cardiovascular Disease; REFERRING PHYSICIAN Internal Medicine | DX: I65.22 Occlusion and stenosis of left carotid artery (principal) | CPT/HCPCS: 93880 ==

== ENCOUNTER → 2024-12-10 08:58 | Outpatient (REF) | payer MEDICARE, SELFPAY ==
[2024-12-10 12:23] LABS: % Basophils 0.9 % (0-2); % Eosinophils 7.4 % (0-6); % Immature Granulocytes 0.3 % (0-0.5); % Lymphocytes 30.1 % (20.5-51.1); % Monocytes 9.1 % (1.7-9.3); % Neutrophils 52.2 % (42.2-75.2); Absolute Basophils 0.1 10^3/uL (0-0.2); Absolute Eosinophils 0.5 10^3/uL (0-0.7); Absolute Lymphocytes 1.9 10^3/uL (1.2-3.4); Absolute Monocytes 0.6 10^3/uL (0.1-0.6); Absolute Neutrophils 3.3 10^3/uL (1.4-6.5); Hematocrit 35.8 % (37.0-47.0); Hemoglobin 11.7 g/dL (12.0-16.0); Mean Corp Hgb Conc. 32.7 g/dL (33.0-37.0); Mean Corpuscular Hgb 28.7 pg (27.0-31.0); Nucleated Red Blood Cells % 0 %; Platelet Count 294 10^3/uL (130-400); Red Blood Cell Count 4.07 10^6/uL (4.20-5.40); Red Cell Dist. Width 12.9 % (11.5-14.5); White Blood Cell Count 6.4 10^3/uL (4.8-10.8)
[2024-12-10 12:38] LABS: ALT (SGPT) 17 U/L (0-35); AST (SGOT) 25 U/L (14-36); Albumin 4.3 g/dl (3.5-5.0); Alkaline Phosphatase 72 U/L (38-126); Blood Urea Nitrogen 18 mg/dl (7-17); Calcium 9.9 mg/dl (8.4-10.2); Carbon Dioxide 30 mmol/L (22-30); Chloride 106 mmol/L (98-107); Glucose 102 mg/dl (70-99); HDL Cholesterol 48 mg/dl; LDL Cholesterol, Calculated 65 mg/dl; Potassium 4.4 mmol/L (3.5-5.1); Sodium 141 mmol/L (135-145); Total Bilirubin 0.8 mg/dl (0.2-1.3); Total Cholesterol 132 mg/dl (50-199); Total Protein 6.8 g/dl (6.3-8.2); Triglyceride 98 mg/dl (10-149); Very Low Density Lipoprotein 19 mg/dl (0-30); eGFR > 60.00
[2024-12-10 12:51] LABS: Free T4 1.11 ng/dl (0.78-2.19)
[2024-12-10 13:05] LABS: TSH 2.35 uIU/ml (0.47-4.68)
[2024-12-10 14:30] LABS: Glycohemoglobin (HgbA1c) 5.4 % (4.0-5.6)
== END ==
LOC: HWLAB 08:58
PROVIDERS: ATTENDING PHYSICIAN Internal Medicine
DX: E87.1 Hypo-osmolality and hyponatremia (principal); E03.9 Hypothyroidism, unspecified; I10 Essential (primary) hypertension; R73.9 Hyperglycemia, unspecified
CPT/HCPCS: 36415; 80053; 80061; 83036; 84439; 84443; 85025

== ENCOUNTER → 2025-02-13 07:08 | Outpatient (REF) | payer MEDICARE, SELFPAY ==
[2025-02-13 09:46] LABS: Hematocrit 38.6 % (37.0-47.0); Hemoglobin 12.5 g/dL (12.0-16.0); Mean Corp Hgb Conc. 32.4 g/dL (33.0-37.0); Mean Corpuscular Volume 85.6 fL (81.0-99.0); Nucleated Red Blood Cells % 0 %; Platelet Count 307 10^3/uL (130-400); Red Cell Dist. Width 13.2 % (11.5-14.5)
== END ==
LOC: HWLAB 07:08
PROVIDERS: ATTENDING PHYSICIAN Internal Medicine Hematology & Oncology; FAMILY PHYSICIAN Internal Medicine
DX: I26.99 Other pulmonary embolism without acute cor pulmonale (principal); Z79.01 Long term (current) use of anticoagulants
CPT/HCPCS: 36415; 85025